=== PATIENT | female | born 1955 | race Caucasian/White ===

== ENCOUNTER → 2017-06-08 | Outpatient (CLI) | payer OTHER ==
--- NOTE | 2017-06-10 07:36 | MM ---
Reason for exam: screening (asymptomatic). Last mammogram was performed 3 years and 10 months ago. History: Patient is postmenopausal. Family history of breast cancer in aunt at age 60. Physical Findings: A clinical breast exam by your physician is recommended on an annual basis and results should be correlated with mammographic findings. MG Screening Mammo w CAD Bilateral CC and MLO view(s) were taken. Prior study comparison: July 25, 2013, bilateral digital screening mammo w/CAD. There are scattered fibroglandular densities. No significant changes when compared with prior studies. ASSESSMENT: Negative, BI-RAD 1 RECOMMENDATION: Routine screening mammogram of both breasts in 1 year.
== END | disposition home or self-care (01) ==
LOC: RADMAMWWP 16:15
PROVIDERS: ATTEND Internal Medicine
DX: Z12.31 Encounter for screening mammogram for malignant neoplasm of breast (principal)

== ENCOUNTER → 2017-12-30 | Outpatient (CLI) | payer OTHER ==
--- NOTE | 2017-12-30 13:25 | CT ---
EXAMINATION TYPE: CT lumbar spine wo con, CT thoracic spine wo con DATE OF EXAM: 12/30/2017 COMPARISON: 04/17/2016 HISTORY: Lumbago (accession [id number]), Thoracic pain (accession [id number]) CT DLP: 804.68 (accession [id number]), 977.2 (accession [id number]) mGycm Unenhanced CT of the thoracic and lumbar spine was performed. Bone and soft tissue window settings a re submitted as well as coronal and sagittal reconstructions. CT thoracic spine: There is moderate to severe multilevel degenerative disc space narrowing. Vacuum disc is noted at T6- 7 through T10-11. There is endplate sclerosis and ventral as well as a minimal dorsal spondylosis. I do not see evidence for disc herniation or protrusion. No evidence for central stenosis. No paraspina l mass or bony destructive process. No compression fracture evident. IMPRESSION: Stable multilevel degenerative disc space narrowing with spondylosis. Lumbar spine: L1-L2: Normal disc space height. No disc herniation protrusion or central stenosis. No facet joint arthropathy. No evidence for foraminal encroachment. L2-L3: Normal disc space height. No disc herniation protrusion or central stenosis. No facet joint arthropathy. No evidence for foraminal encroachment. L3-L4: Normal disc space height. Mild circumferential disc bulge. No evidence for herniation or protr usion. Mild bilateral foraminal encroachment left greater than right. No facet joint arthropathy. L4-L5: Vacuum disc changes identified. Moderate circumferential disc bulge. Effacement of the ventral thecal sac with right lateral recess stenosis. Mild bilateral foraminal encroachment right greater t guerin left. No central stenosis identified. L5-S1: Moderate degenerative disc space narrowing. Posterior disc bulge with encapsulating spur resul ting in posterior central hard disc. No evidence for central stenosis or lateral recess stenosis. No paraspinal masses are identified. Lumbar segments are free if fracture. IMPRESSION: 1. Multilevel degenerative disc disease greatest at L4-5 and L5-S1. Right lateral recess stenosis at L4-5. Foraminal encroachment as outlined above.
== END | disposition home or self-care (01) ==
LOC: RADCTMAIN 12:28
PROVIDERS: ATTEND Psychiatry & Neurology Neurology
DX: M48.04 Spinal stenosis, thoracic region (principal); M48.061 Spinal stenosis, lumbar region without neurogenic claudication; M47.814 Spondylosis without myelopathy or radiculopathy, thoracic region; M51.37 Other intervertebral disc degeneration, lumbosacral region; Z88.0 Allergy status to penicillin
CPT/HCPCS: 72128; 72131

== ENCOUNTER → 2018-03-11 | Outpatient (CLI) | payer OTHER ==
[~2018-03-11] MED LIST: SODIUM CHLORIDE 0.9% 500 ML in EMPTY BAG 1 BAG IV PRN
[2018-03-11 09:34] VITALS: BP 137/96; PULSE 83; RESP 16; TEMP 98.7
[2018-03-11 09:55] LABS: Basophils % (A) 1 %; Eosinophils # (A) 0.2 k/uL (0-0.7); Eosinophils % (A) 3 %; HCT 40.6 % (34.0-46.0); HGB 12.9 gm/dL (11.4-16.0); Lymphocytes # (A) 3.4 k/uL (1.0-4.8); Lymphocytes % (A) 43 %; MCH 30.7 pg (25.0-35.0); MCHC 31.7 g/dL (31.0-37.0); MCV 96.6 fL (80.0-100.0); Mean Platelet Volume 6.9; Monocytes # (A) 0.6 k/uL (0-1.0); Monocytes % (A) 7 %; Neutrophils # (A) 3.5 k/uL (1.3-7.7); Neutrophils % (A) 44 %; Platelet Count 238 k/uL (150-450); RDW 13.8 % (11.5-15.5); WBC 7.9 k/uL (3.8-10.6)
[2018-03-11 10:06] LABS: Albumin 3.8 g/dL (3.5-5.0); Calcium 9.2 mg/dL (8.4-10.2); Total Bilirubin 0.3 mg/dL (0.2-1.3); Total Protein 6.5 g/dL (6.3-8.2)
== END | disposition home or self-care (01) ==
LOC: PROCWHC3 09:01
PROVIDERS: ATTEND Internal Medicine
DX: E78.5 Hyperlipidemia, unspecified (principal); I10 Essential (primary) hypertension; R63.4 Abnormal weight loss; Z45.2 Encounter for adjustment and management of vascular access device
CPT/HCPCS: 80053; 84443; 85025; 36591; J1642

== ENCOUNTER → 2018-04-13 | Outpatient (CLI) | payer OTHER ==
--- NOTE | 2018-04-13 11:23 | US ---
EXAMINATION TYPE: US carotid duplex BILAT DATE OF EXAM: 04/13/2018 COMPARISON: 11/10/2013 CLINICAL HISTORY: R09.89 Carotid Bruit,. EXAM MEASUREMENTS: RIGHT: Peak Systolic Velocity (PSV) cm/sec ----- Right CCA: 83.8 ----- Right ICA: 112.9 ----- Right ECA: 82.7 ICA/CCA ratio: 1.3 RIGHT: End Diastole cm/sec ----- Right CCA: 25.7 ----- Right ICA: 45.1 ----- Right ECA: 20.2 LEFT: Peak Systolic Velocity (PSV) cm/sec ----- Left CCA: known occlusion- no flow detected ----- Left ICA: known occlusion- no flow detected ----- Left ECA: known occlusion- no flow detected ICA/CCA ratio: LEFT: End Diastole cm/sec ----- Left CCA: known occlusion- no flow detected ----- Left ICA: known occlusion- no flow detected ----- Left ECA: known occlusion- no flow detected VERTEBRALS (direction of flow): Right Vertebral: Antegrade Left Vertebral: Antegrade Rhythm: Normal IMPRESSION: 1. 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 2. No hemodynamically significant stenosis within the right visualized carotid arterial system. Mild amount of grayscale atheromatous plaquing.
== END ==
LOC: RADUSMAIN 10:02
PROVIDERS: ATTEND Internal Medicine Cardiovascular Disease
DX: I65.22 Occlusion and stenosis of left carotid artery (principal)
CPT/HCPCS: 93880

== ENCOUNTER 2018-05-20 09:30 | Emergency (ER) | payer OTHER ==
[2018-05-20] MEDS ORDERED: SODIUM CHLORIDE 0.9% 1,000 ML IV STA ×2 (10:16)
[2018-05-20] MEDS ORDERED: LABETALOL 5 MG/ML VIAL MDV IVP STA (10:17)
--- NOTE | 2018-05-20 10:21 | ED ---
Recheck HPI - General Chief Complaint: Recheck/Abnormal Lab/Rx Stated Complaint: Hypertension Time Seen by Provider: 05/20/18 09:52 Source: patient, RN notes reviewed, old records reviewed Mode of arrival: ambulatory Limitations: no limitations - History of Present Illness Initial Comments: 62-year-old female presented to the emergency department for evaluation due to hypertension. Patient was here out patiently for MediPort flushed this morning. Patient's blood pressure was elevated at 186/109 and then 191/111. Patient did have her port flushed but was told to come to the ER for further evaluation due to the elevated will pressure. She reports that she's had no chest pain or shortness of breath. She does report she's been having some headaches frequently. She's been taking Tylenol. Patient states that she has had no other symptoms associated with the blood pressure. Normal urine output. - Related Data Home Medications Medication Instructions Recorded Confirmed HYDROcodone/APAP 5-325MG [[place] 1 tab PO BID PRN 10/02/16 05/20/18 5-325] Metoprolol Tartrate [Lopressor] 25 mg PO BID 10/02/16 05/20/18 Divalproex ER [Depakote ER] 500 mg PO TID 03/11/18 05/20/18 Zolpidem [Ambien] 5 mg PO HS PRN 03/11/18 05/20/18 Escitalopram [Lexapro] 10 mg PO DAILY 05/20/18 05/20/18 Fenofibrate,Micronized 200 mg PO DAILY 05/20/18 05/20/18 [Fenofibrate] Prasugrel [Effient] 10 mg PO DAILY 05/20/18 05/20/18 Primidone [Mysoline] 50 mg PO HS 05/20/18 05/20/18 Simvastatin 40 mg PO HS 05/20/18 05/20/18 Allergies Allergy/AdvReac Type Severity Reaction Status Date / Time iodine Allergy Severe Facial Verified 05/20/18 09:58 Swelling Penicillins Allergy Severe facial Verified 05/20/18 09:58 swelling Review of Systems ROS Statement: Those systems with pertinent positive or pertinent negative responses have been documented in the HPI. ROS Other: All systems not noted in ROS Statement are negative. Past Medical History Past Medical History: Asthma, Blood Disorder, Chest Pain / Angina, COPD, CVA/TIA , Deep Vein Thrombosis (DVT), Hyperlipidemia, Hypertension, Liver Disease, Memory Impairment, Pneumonia, Seizure Disorder, Skin Disorder, Syncope, Vascular Disorder Additional Past Medical History / Comment(s): Last seizure March 2016, heart Murmur, DVT R leg 1998, TIA, PVOD, chronic back pain, DDD, hepatitis C, migraines, UTI, urine incontinence at times, eczema yrs ago, anemia, sinusitis, colon polyps, past fractures R foot little toe and L foot fx. History of Any Multi-Drug Resistant Organisms: MRSA Date of last positivie culture/infection: 2008 MDRO Source:: legs Past Surgical History: AICD, Heart Catheterization, Hysterectomy, Pacemaker Additional Past Surgical History / Comment(s): 2012 AICD/pacer, 2011 cardiac cath-no intervention, colonoscopy with polypectomy, tumor removed in throat, dasia filter 2006, angiograms, stent to bilateral legs, L jugular vein tumor removed, infusaport for blood draws r/t coumadin monitoring. Past Anesthesia/Blood Transfusion Reactions: No Reported Reaction Additional Past Anesthesia/Blood Transfusion Reaction / Comment(s): Pt states she received blood in the 1970's without reaction. Type of Cardiac Device: Permanent Pacemaker, AICD Device Placement Date:: 2012 Past Psychological History: Anxiety, Bipolar, Depression Smoking Status: Former smoker Past Alcohol Use History: None Reported Past Drug Use History: Heroin, Marijuana - Past Family History Father History Unknown: Yes Family Medical History: Cancer, CVA/TIA, Myocardial Infarction (MT) Additional Family Medical History / Comment(s): Father had colon cancer. He is 80 yrs old. General Exam - General Exam Comments Initial Comments: This is a 62-year-old female. Alert and oriented. No significant distress. Limitations: no limitations General appearance: alert, in no apparent distress Head exam: Present: atraumatic, normocephalic, normal inspection Eye exam: Present: normal appearance, PERRL, EOMI. Absent: scleral icterus, conjunctival injection, periorbital swelling ENT exam: Present: normal exam, mucous membranes moist Neck exam: Present: normal inspection. Absent: tenderness, meningismus, lymphadenopathy Respiratory exam: Present: normal lung sounds bilaterally. Absent: respiratory distress, wheezes, rales, rhonchi, stridor Cardiovascular Exam: Present: regular rate, normal rhythm, normal heart sounds. Absent: systolic murmur, diastolic murmur, rubs, gallop, clicks Extremities exam: Present: normal inspection, full ROM, normal capillary refill. Absent: tenderness, pedal edema, joint swelling, calf tenderness Back exam: Present: normal inspection Neurological exam: Present: alert, oriented X3, CN II-XII intact Expanded Patient oriented to: Present: person, place, time Speech: Present: fluid speech Cranial nerves: EOM's Intact: Normal Cerebellar function: Finger to Nose: Normal Upper motor neuron: Pronator Drift: Normal Sensory exam: Upper Extremity Light Touch: Normal, Lower Extremity Light Touch: Normal Motor strength exam: RUE: 5, LUE: 5, RLE: 5, LLE: 5 Eye Response: (4) open spontaneously Motor Response: (6) obeys commands Verbal Response: (5) oriented Geraldine Total: 15 Psychiatric exam: Present: normal affect, normal mood Skin exam: Present: warm, dry, intact, normal color. Absent: rash Course Vital Signs 05/20/18 05/20/18 05/20/18 09:35 10:40 12:01 Temperature 97.7 F Pulse Rate 73 69 66 Respiratory 20 20 18 Rate Blood Pressure 178/93 154/73 142/75 O2 Sat by Pulse 98 97 98 Oximetry 05/20/18 13:03 Temperature 98.5 F Pulse Rate 69 Respiratory 16 Rate Blood Pressure 138/94 O2 Sat by Pulse 96 Oximetry Medical Decision Making - Medical Decision Making 62-year-old female presents emergency Department chief complaint of episodes of hypertension. Patient does have a history of stents in her as well as pacemaker. Patient reports she's been taking her medication as prescribed. She was here earlier today to get her Mediport placed and they noticed her blood pressure is elevated. His complaint of a headache at this time. Patient was given IV fluids labwork obtained. All her lab work was reviewed and normal. EKG shows no acute changes. CT brain and C-spine were completed negative for any acute abdomen ice. She was given fluids Patient reports that her headache is diminished now 0 out of 10. She was eating a sandwich. She has no neurological focalizing findings. Patient informed of all these results. Her blood pressure did go down to 150/83. No labetalol was given. On discharge blood pressures 130/100. I discussed that she should check her blood pressure throughout the week. She does have at home blood pressure machine. She states that she feels well and the like to be discharged home. I agreed to follow-up with primary care physician. Patient is history plan will comply. Return parameters were discussed. - Lab Data Result diagrams: 05/20/18 10:55 05/20/18 10:55 Lab Results 05/20/18 05/20/18 05/20/18 Range/Units 10:55 10:55 10:55 WBC 6.0 (3.8-10.6) k/uL RBC 4.17 (3.80-5.40) m/uL Hgb 13.0 (11.4-16.0) gm/dL Hct 39.5 (34.0-46.0) % MCV 94.8 (80.0-100.0) fL MCH 31.1 (25.0-35.0) pg MCHC 32.7 (31.0-37.0) g/dL RDW 13.7 (11.5-15.5) % Plt Count 164 (150-450) k/uL Neutrophils % 52 % Lymphocytes % 39 % Monocytes % 6 % Eosinophils % 2 % Basophils % 1 % Neutrophils # 3.1 (1.3-7.7) k/uL Lymphocytes # 2.4 (1.0-4.8) k/uL Monocytes # 0.3 (0-1.0) k/uL Eosinophils # 0.1 (0-0.7) k/uL Basophils # 0.0 (0-0.2) k/uL PT (9.0-12.0) sec INR (<1.2) APTT (22.0-30.0) sec Sodium 140 (137-145) mmol/L Potassium 4.6 (3.5-5.1) mmol/L Chloride 107 (98-107) mmol/L Carbon Dioxide 25 (22-30) mmol/L Anion Gap 8 mmol/L BUN 24 H (7-17) mg/dL Creatinine 0.80 (0.52-1.04) mg/dL Est GFR (CKD-EPI)AfAm >90 (>60 ml/min/1.73 sqM) Est GFR (CKD-EPI)NonAf 80 (>60 ml/min/1.73 sqM) Glucose 94 (74-99) mg/dL Calcium 9.1 (8.4-10.2) mg/dL Magnesium 1.8 (1.6-2.3) mg/dL Total Bilirubin 0.3 (0.2-1.3) mg/dL AST 25 (14-36) U/L ALT 26 (9-52) U/L Alkaline Phosphatase 62 (38-126) U/L Total Creatine Kinase 48 (30-135) U/L CK-MB (CK-2) 0.8 (0.0-2.4) ng/mL CK-MB (CK-2) Rel Index 1.7 Troponin I <0.012 (0.000-0.034) ng/mL Total Protein 6.2 L (6.3-8.2) g/dL Albumin 3.6 (3.5-5.0) g/dL 05/20/18 Range/Units 10:55 WBC (3.8-10.6) k/uL RBC (3.80-5.40) m/uL Hgb (11.4-16.0) gm/dL Hct (34.0-46.0) % MCV (80.0-100.0) fL MCH (25.0-35.0) pg MCHC (31.0-37.0) g/dL RDW (11.5-15.5) % Plt Count (150-450) k/uL Neutrophils % % Lymphocytes % % Monocytes % % Eosinophils % % Basophils % % Neutrophils # (1.3-7.7) k/uL Lymphocytes # (1.0-4.8) k/uL Monocytes # (0-1.0) k/uL Eosinophils # (0-0.7) k/uL Basophils # (0-0.2) k/uL PT 11.6 (9.0-12.0) sec INR 1.2 H (<1.2) APTT 35.5 H (22.0-30.0) sec Sodium (137-145) mmol/L Potassium (3.5-5.1) mmol/L Chloride (98-107) mmol/L Carbon Dioxide (22-30) mmol/L Anion Gap mmol/L BUN (7-17) mg/dL Creatinine (0.52-1.04) mg/dL Est GFR (CKD-EPI)AfAm (>60 ml/min/1.73 sqM) Est GFR (CKD-EPI)NonAf (>60 ml/min/1.73 sqM) Glucose (74-99) mg/dL Calcium (8.4-10.2) mg/dL Magnesium (1.6-2.3) mg/dL Total Bilirubin (0.2-1.3) mg/dL AST (14-36) U/L ALT (9-52) U/L Alkaline Phosphatase (38-126) U/L Total Creatine Kinase (30-135) U/L CK-MB (CK-2) (0.0-2.4) ng/mL CK-MB (CK-2) Rel Index Troponin I (0.000-0.034) ng/mL Total Protein (6.3-8.2) g/dL Albumin (3.5-5.0) g/dL 05/20/18 10:59 EKG shows atrial paced rhythm. The jugular rate of 61 bpm period. Was 196 ms. QRS duration 70 ms. QT QTc is 418/420 ms. - Radiology Data Radiology results: report reviewed No acute process. Chronic changes similar to prior CT 2-16. His x-rays negative for any acute cardio primary process. No significant change from prior. Disposition Clinical Impression: Hypertension Disposition: HOME SELF-CARE Condition: Good Instructions: Hypertension (ED) Additional Instructions: Follow-up with primary care provider. Return to emergency department if any alarming signs or symptoms occur. Recheck blood pressure periodically throughout the week. Is patient prescribed a controlled substance at d/c from ED?: No When asked, does pt state using other controlled substances?: No If prescribed controlled substance>3 days was MAPS reviewed?: No If opioid is for acute pain is fill amount 7 days or less?: No If Rx opioid, was Start Talking consent form obtained?: No Referrals: Jayashree Torres MD [Primary Care Provider] - 1-2 days Time of Disposition: 12:57
--- NOTE | 2018-05-20 11:22 | CT ---
EXAMINATION TYPE: CT brain wo con DATE OF EXAM: 05/20/2018 COMPARISON: 02/09/2016 HISTORY: hypertension, LAROSE CT DLP: 1100 mGycm Automated exposure control for dose reduction was used. FINDINGS: There is redemonstration of punctate basal ganglia calcifications seen bilaterally. Prominence of the peripheral sulci and ventricular system compatible with age-related volume loss are seen on the prio r exam. There is no evidence of acute intracranial hemorrhage, midline shift or mass effect. No suspi cious extra axial fluid collection is seen. Note is made of a partially empty sella turcica. There ar e few foci of nonspecific white matter change within the subcortical and periventricular white matter as seen on the prior exam, unchanged. These are most commonly on the basis of chronic microangiopath y. Left parietal scalp vertex debris compatible with foreign bodies are unchanged from the prior. Dennis varium is intact and paranasal sinuses are well aerated as are the mastoid air cells. There is athero sclerosis of the intracranial vasculature noted. IMPRESSION: NO ACUTE INTRACRANIAL PROCESS. CHRONIC CHANGES ARE SIMILAR TO THE PRIOR 02/19/2016.
[2018-05-20 11:26] LABS: Basophils % (A) 1 %; Eosinophils # (A) 0.1 k/uL (0-0.7); Eosinophils % (A) 2 %; HCT 39.5 % (34.0-46.0); Lymphocytes # (A) 2.4 k/uL (1.0-4.8); Lymphocytes % (A) 39 %; MCH 31.1 pg (25.0-35.0); MCHC 32.7 g/dL (31.0-37.0); MCV 94.8 fL (80.0-100.0); Mean Platelet Volume 6.8; Monocytes # (A) 0.3 k/uL (0-1.0); Monocytes % (A) 6 %; Neutrophils # (A) 3.1 k/uL (1.3-7.7); Neutrophils % (A) 52 %; Platelet Count 164 k/uL (150-450); RBC 4.17 m/uL (3.80-5.40); RDW 13.7 % (11.5-15.5)
--- NOTE | 2018-05-20 11:36 | XR ---
EXAMINATION TYPE: XR chest 2V DATE OF EXAM: 05/20/2018 COMPARISON: Chest x-ray October 02, 2016 HISTORY: Chest pain. TECHNIQUE: Frontal and lateral views of the chest are obtained. FINDINGS: There is stable right internal jugular Mediport catheter. There is no focal air space opaci ty, pleural effusion, or pneumothorax seen. The cardiac silhouette size is within normal limits. Isaias l-lead pacemaker is redemonstrated. The osseous structures are intact. IMPRESSION: No acute cardiopulmonary process. No significant change from prior.
[2018-05-20 11:41] LABS: ALT 26 U/L (9-52); AST 25 U/L (14-36); Albumin 3.6 g/dL (3.5-5.0); Alkaline Phosphatase 62 U/L (38-126); Anion Gap 8 mmol/L; Blood Urea Nitrogen 24 mg/dL (7-17); Calcium 9.1 mg/dL (8.4-10.2); Carbon Dioxide 25 mmol/L (22-30); Chloride 107 mmol/L (98-107); Glucose 94 mg/dL (74-99); Magnesium 1.8 mg/dL (1.6-2.3); Potassium 4.6 mmol/L (3.5-5.1); Sodium 140 mmol/L (137-145); Total Bilirubin 0.3 mg/dL (0.2-1.3); Total Protein 6.2 g/dL (6.3-8.2)
[2018-05-20 11:52] LABS: Creatine Kinase 48 U/L (30-135)
[2018-05-20 12:04] LABS: Creatine Kinase MB 0.8 ng/mL (0.0-2.4); Troponin I <0.012 ng/mL (0.000-0.034)
[2018-05-20 12:10] LABS: INR 1.2 (<1.2); Partial Thromboplastin Time 35.5 sec (22.0-30.0); Prothrombin Time 11.6 sec (9.0-12.0)
[2018-05-20 13:04] VITALS: BP 138/94; PULSE 69; RESP 16; TEMP 98.5
== END 2018-05-20 13:25 | disposition home or self-care (01) ==
LOC: EC 09:30
DX: I10 Essential (primary) hypertension (principal); R51 Headache; E78.5 Hyperlipidemia, unspecified; G40.909 Epilepsy, unspecified, not intractable, without status epilepticus; F31.9 Bipolar disorder, unspecified; F41.9 Anxiety disorder, unspecified; Z87.891 Personal history of nicotine dependence; Z79.899 Other long term (current) drug therapy; Z88.0 Allergy status to penicillin; Z91.048 Other nonmedicinal substance allergy status; Z86.14 Personal history of Methicillin resistant Staphylococcus aureus infection; Z86.69 Personal history of other diseases of the nervous system and sense organs; Z86.79 Personal history of other diseases of the circulatory system; Z95.0 Presence of cardiac pacemaker; Z82.49 Family history of ischemic heart disease and other diseases of the circulatory system; Z53.8 Procedure and treatment not carried out for other reasons
CPT/HCPCS: 36415; 70450; 71046; 80053; 82550; 82553; 83735; 84484; 85025; 85610; 85730; 93005; 96360; 96361; 99284

== ENCOUNTER → 2018-05-20 | Outpatient (CLI) | payer OTHER ==
[2018-05-20 09:23] VITALS: PULSE 70; RESP 16; TEMP 97.7
[2018-05-20 09:25] VITALS: BP 191/111
[2018-05-20 09:59] LABS: Basophils # (A) 0.1 k/uL (0-0.2); Basophils % (A) 1 %; Eosinophils # (A) 0.2 k/uL (0-0.7); Eosinophils % (A) 2 %; HCT 42.4 % (34.0-46.0); HGB 13.6 gm/dL (11.4-16.0); Lymphocytes # (A) 3.3 k/uL (1.0-4.8); Lymphocytes % (A) 46 %; MCH 30.9 pg (25.0-35.0); MCV 96.4 fL (80.0-100.0); Mean Platelet Volume 6.6; Monocytes # (A) 0.5 k/uL (0-1.0); Monocytes % (A) 6 %; Neutrophils % (A) 43 %; Platelet Count 196 k/uL (150-450); RDW 13.8 % (11.5-15.5)
[2018-05-20 10:05] LABS: Calcium 9.2 mg/dL (8.4-10.2); Potassium 4.8 mmol/L (3.5-5.1); Total Bilirubin 0.4 mg/dL (0.2-1.3); Total Protein 6.7 g/dL (6.3-8.2)
== END | disposition home or self-care (01) ==
LOC: PROCWHC3 08:54
PROVIDERS: ATTEND Internal Medicine
DX: Z45.2 Encounter for adjustment and management of vascular access device (principal); E78.5 Hyperlipidemia, unspecified; R63.4 Abnormal weight loss
CPT/HCPCS: 80061; 80053; 84443; 85025; 36591; J1642

== ENCOUNTER → 2018-06-02 | Outpatient (CLI) | payer OTHER ==
--- NOTE | 2018-06-02 16:54 | US ---
EXAMINATION TYPE: US abdomen complete DATE OF EXAM: 06/02/2018 COMPARISON: CT 10/03/2016 CLINICAL HISTORY: ABDOMINAL PAIN. EXAM MEASUREMENTS: Liver Length: 13.3 cm Gallbladder Wall: 0.2 cm CBD: 0.3 cm Spleen: 7.4 cm Right Kidney: 9.7 x 4.3 x 4.4 cm Left Kidney: 9.9 x 4.4 x 4.3 cm Pancreas: Body/Tail obscured by overlying bowel gas Liver: wnl Gallbladder: wnl Evidence for sonographic Balderrama's sign: No CBD: wnl Spleen: Slightly heterogeneous echotexture Right Kidney: No hydronephrosis or masses seen Left Kidney: No hydronephrosis or masses seen Upper IVC: wnl Abd Aorta: Atherosclerosis IMPRESSION: 1. No acute ultrasound abnormality.
== END | disposition home or self-care (01) ==
LOC: RADUSWWP 08:46
PROVIDERS: ATTEND Internal Medicine
DX: R10.84 Generalized abdominal pain (principal)
CPT/HCPCS: 76700

== ENCOUNTER → 2018-12-09 | Outpatient (CLI) | payer OTHER ==
--- NOTE | 2018-12-09 15:59 | NM ---
EXAMINATION TYPE: NM DatScan Brain SPECT DATE OF EXAM: 12/09/2018 COMPARISON: 05/20/2018 CT brain HISTORY: Tremors, memory loss, abnormal gait TECHNIQUE: 10 drops of Lugol's solution was administered 1 hour prior to injection as a thyroid bloc hugo agent. After the administration of 4.45 mCi I-123 Ioflupane DaTscan. Images obtained 3 hours p ost injection. SPECT images of the brain were acquired with axial and coronal reconstructions. FINDINGS: There is an abnormal level of background activity with slightly weak, shape appearance of the caudate and putamen. The DaTSCAN demonstrates balanced striatal loss to the caudate and putamina nucleii in the striata. This appearance is consistent with the loss of the pre-synaptic dopaminergic terminals. IMPRESSION: Striatal appearance is consistent with the loss of the pre-synaptic dopaminergic terminals. Abnormal appearance is supportive of a clinical diagnosis of DLB, idiopathic PD, Parkinson?s dementia complex, or PS.
== END | disposition home or self-care (01) ==
LOC: RADNMMAIN 10:57
PROVIDERS: ATTEND Psychiatry & Neurology Neurology
DX: G25.0 Essential tremor (principal)
CPT/HCPCS: 78607; A9584; J1642

== ENCOUNTER → 2019-04-28 | Outpatient (CLI) | payer OTHER ==
--- NOTE | 2019-05-01 09:44 | MM ---
Reason for exam: screening (asymptomatic). Last mammogram was performed 1 year and 11 months ago. History: Patient is postmenopausal. Family history of breast cancer in aunt at age 60. Physical Findings: A clinical breast exam by your physician is recommended on an annual basis and results should be correlated with mammographic findings. MG Screening Mammo w CAD Bilateral CC and MLO view(s) were taken. Prior study comparison: June 08, 2017, bilateral MG screening mammo w CAD. July 25, 2013, bilateral digital screening mammo w/CAD. The breast tissue is heterogeneously dense. This may lower the sensitivity of mammography. Benign appearing bilateral calcifications. Left breast asymmetry at middle depth 6cm from nipple. ASSESSMENT: Incomplete: need additional imaging evaluation, BI-RAD 0 RECOMMENDATION: Special view mammogram of the left breast. Ultrasound of the right breast. (right palpable) [facility] will attempt to contact patient to return for supplemental views and ultrasound.
== END | disposition home or self-care (01) ==
LOC: RADMAMWWP 15:12
PROVIDERS: ATTEND Internal Medicine
DX: Z12.31 Encounter for screening mammogram for malignant neoplasm of breast (principal)
CPT/HCPCS: 77067

== ENCOUNTER → 2019-05-29 | Outpatient (CLI) | payer OTHER ==
--- NOTE | 2019-05-29 13:51 | US ---
EXAMINATION TYPE: US carotid duplex BILAT DATE OF EXAM: 05/29/2019 COMPARISON: US 2018 CLINICAL HISTORY: I73.9 Peripheral vascular disease, R09.89. Pt states known occlusion left side x ma ny years EXAM MEASUREMENTS: RIGHT: Peak Systolic Velocity (PSV) cm/sec ----- Right CCA: 67.7 ----- Right ICA: 121.1 ----- Right ECA: 96.5 ICA/CCA ratio: 1.8 RIGHT: End Diastole cm/sec ----- Right CCA: 21.5 ----- Right ICA: 46.1 ----- Right ECA: 39.6 LEFT: Peak Systolic Velocity (PSV) cm/sec Entire left carotid system occluded LEFT: End Diastole cm/sec Entire left carotid system occluded VERTEBRALS (direction of flow): Right Vertebral: Antegrade Left Vertebral: Antegrade Rhythm: Normal Entire left carotid system occluded, very difficult to visualize, vessels very small in caliber At the level of the carotid bifurcation is again noted mixed hypo-: Focus measuring 2.3 x 1.3 cm whic h may be related to atheroma but is indeterminate. IMPRESSION: Known occlusion of the internal carotid artery on the left. Irregular appearance of the carotid bifurcation as on prior exam, stable finding
== END | disposition home or self-care (01) ==
LOC: RADUSWWP 10:15
PROVIDERS: ATTEND Internal Medicine Cardiovascular Disease
DX: I65.22 Occlusion and stenosis of left carotid artery (principal); I25.10 Atherosclerotic heart disease of native coronary artery without angina pectoris
CPT/HCPCS: 93880

== ENCOUNTER → 2019-06-05 | Outpatient (CLI) | payer OTHER ==
--- NOTE | 2019-06-05 11:29 | MM ---
Reason for exam: additional evaluation requested from abnormal screening. Last mammogram was performed 1 month ago. History: Patient is postmenopausal. Family history of breast cancer in aunt at age 60. Physical Findings: Nurse did not find any significant physical abnormalities on exam. MG Work Up Mamm w CAD LT Spot compression CC, spot compression MLO, and ML view(s) were taken of the left breast. Prior study comparison: April 28, 2019, bilateral MG screening mammo w CAD. June 08, 2017, bilateral MG screening mammo w CAD. The breast tissue is extremely dense which could obscure a lesion on mammography. The previously seen abnormality resolves on additional views and appears as fibroglandular tissue compatible with summation. No suspicious abnormality. No ultrasound will be performed for right palpables as ordered as the patients skin lesion is not gone. These results were verbally communicated with the patient and result sheet given to the patient on 06/05/19. ASSESSMENT: Benign, BI-RAD 2 RECOMMENDATION: Return to routine screening mammogram schedule for both breasts.
== END | disposition home or self-care (01) ==
LOC: RADMAMWWP 10:14
PROVIDERS: ATTEND Internal Medicine
DX: R92.8 Other abnormal and inconclusive findings on diagnostic imaging of breast (principal)
CPT/HCPCS: 77065

== ENCOUNTER → 2019-11-25 | Outpatient (CLI) | payer OTHER ==
--- NOTE | 2019-11-26 12:52 | CT ---
EXAMINATION TYPE: CT sinus wo con DATE OF EXAM: 11/25/2019 COMPARISON: HISTORY: Sinus congestion and drainage. CT DLP: 667.3 mGycm. Automated Exposure Control for Dose Reduction was Utilized. TECHNIQUE: CT scan of the sinuses is performed without contrast, axial images are obtained, coronal r eformatted images are also reviewed. FINDINGS: The paranasal sinuses including the frontal, ethmoid, sphenoid, and maxillary sinuses bila terally are well-aerated without abnormal opacification. The ostiomeatal complex is patent bilateral ly on the coronal images. Mattie bullosa is present on the right. Visualized portion of mastoid air cells show no abnormal opacification. The globes are intact bilate rally. Mild cortical atrophy is likely age-related. Asymmetric soft tissue is increased on the right at the level of the jugular vein at the base of the skull, axial image #12, punctate focus of calcif ication is associated on axial image #6. IMPRESSION: The sinuses are clear and the ostiomeatal complex is patent bilaterally. Asymmetric soft tissue at the base of the skull as described. Contrast-enhanced CT through the neck suggested. A Yellow level critical message alert has been initiated for Jayashree Torres MD via the [employer] Critical Results System on 11/26/2019 12:49 PM. This message alert has been sent to Jayashree Torres MD via the preferences provided by the clinician for the receipt of Radiology Critical Findings. [employer] e ID [id number].
== END | disposition home or self-care (01) ==
LOC: RADCTMAIN 08:47
PROVIDERS: ATTEND Internal Medicine
DX: J30.9 Allergic rhinitis, unspecified (principal)
CPT/HCPCS: 70486

== ENCOUNTER → 2019-12-14 | Outpatient (CLI) | payer OTHER ==
--- NOTE | 2019-12-19 13:50 | CT ---
EXAMINATION TYPE: CT angio neck DATE OF EXAM: 12/14/2019 COMPARISON: None HISTORY: Neck swelling and lump CT DLP: 476.1 mGycm CONTRAST: CTA cervical carotids is performed and without and with IV Contrast, patient injected with 65 mL of I sovue 370. Contrast CTA of the cervical carotids was performed 3-D reconstruction imaging obtained at a separate workstation. Right carotid system: There is an enhancing mass noted at the right carotid bulb which partially enca ses the right carotid bulb and the right external carotid artery. This mass measures 1.7 x 1.8 x 2.4 cm. There is an additional mass noted more cranially which sits between the external carotid artery a nd right internal carotid artery which measures 2.7 x 1.7 x 1.1 cm. No additional right-sided masses are evident. There is mild atheromatous change of the right internal carotid artery with estimated di ameter reduction of 60%. Left carotid system: The left common carotid artery as well as the internal carotid artery are not vi sualized and are felt to be occluded. Several external carotid artery collaterals are noted. There is an enhancing mass at the C1 level measuring 2.1 x 1.2 x 1.5 cm. No additional left-sided masses are evident. There are enhancing masses within the mediastinum similar to the masses are noted about the carotids bilaterally. These lesions measure 1.2 cm 1.3 cm respectively. Ill-defined lesion left thyroid gland requires ultrasound correlation. IMPRESSION: 1. 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 Es timated 60% diameter reduction proximal right ICA. 2. Multiple enhancing masses noted about the bilateral carotids as discussed one of which encases the internal carotid artery partially and fully encases the right external carotid artery. There are sim ilar lesions within the mediastinum. Differential diagnostic possibilities include enhancing adenopat hy although glomus tumor is certainly within the differential. Correlate clinically. 3. Ultrasound of the thyroid gland is advised.
== END | disposition home or self-care (01) ==
LOC: RADCTMAIN 14:10
PROVIDERS: ATTEND Surgery Vascular Surgery
DX: I65.22 Occlusion and stenosis of left carotid artery (principal); R22.1 Localized swelling, mass and lump, neck
CPT/HCPCS: 70498; Q9967

== ENCOUNTER 2019-12-22 11:20 | Inpatient (IN) | payer OTHER ==
[2019-12-22 12:59] LABS: Basophils # (A) 0.1 k/uL (0-0.2); Basophils % (A) 1 %; Eosinophils # (A) 0.1 k/uL (0-0.7); Eosinophils % (A) 1 %; HCT 39.8 % (34.0-46.0); HGB 12.7 gm/dL (11.4-16.0); Hypochromasia Slight; Lymphocytes # (A) 3.7 k/uL (1.0-4.8); Lymphocytes % (A) 42 %; MCH 29.6 pg (25.0-35.0); MCHC 31.9 g/dL (31.0-37.0); MCV 92.7 fL (80.0-100.0); Mean Platelet Volume 6.8; Monocytes # (A) 0.6 k/uL (0-1.0); Monocytes % (A) 6 %; Neutrophils # (A) 4.2 k/uL (1.3-7.7); Neutrophils % (A) 47 %; Platelet Count 361 k/uL (150-450); RBC 4.29 m/uL (3.80-5.40); RDW 15.3 % (11.5-15.5); WBC 8.8 k/uL (3.8-10.6)
[2019-12-22 13:05] LABS: ALT 6 U/L (4-34); AST 21 U/L (14-36); African American GFR (CKD) >90 (>60 ml/min/1.73 sqM); Alkaline Phosphatase 79 U/L (38-126); Anion Gap 8 mmol/L; Blood Urea Nitrogen 18 mg/dL (7-17); Calcium 9.7 mg/dL (8.4-10.2); Carbon Dioxide 28 mmol/L (22-30); Chloride 100 mmol/L (98-107); Glucose 83 mg/dL (74-99); Non-African American GFR(CKD) 79 (>60 ml/min/1.73 sqM); Potassium 4.7 mmol/L (3.5-5.1); Sodium 136 mmol/L (137-145); Total Bilirubin 0.4 mg/dL (0.2-1.3); Total Protein 7.3 g/dL (6.3-8.2)
--- NOTE | 2019-12-22 14:22 | P.HPIM ---
History of Present Illness H&P Date: 12/22/19 Chief Complaint: Neck pain with masses noted around the bilateral carotids This is a 64-year-old female with a known past medical history of nicotine use, hypertension seizure, myocardial infarction, coronary artery disease with stents, pacemaker, right leg DVT several years ago treated with Coumadin, peripheral vascular disease and a remote history of IV drug use over 50 years ago. Patient also has a MediPort in which she gets blood draws for her seizure medication levels. Patient is a direct admit from Dr. Torres's office. She has been having neck pain bilaterally. Patient had been having issues with her MediPort and unable to get blood drawn's from it. She went to Dr. 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 Estimated 60% diameter reduction proximal right internal carotid artery. Multiple enhancing masses noted about the bilateral carotids one of which encases the internal carotid artery partially and fully encases the right external carotid artery. There are similar lesions within the mediastinum. Differential diagnostic possibilities include enhancing adenopathy although glomus tumor is certainly within the differential. Patient has been admitted to the hospital oncology has been placed on consult. Patient denies any prior history of cancer. She does admit to having some difficulty with swallowing. She denies any chest pain or shortness of breath. She denies any bowel movement changes or urinary symptoms. She denies any fevers chills or sweats. Review of Systems Please refer to HPI otherwise unremarkable Past Medical History Past Medical History: Asthma, Blood Disorder, Chest Pain / Angina, COPD, CVA/TIA, Deep Vein Thrombosis (DVT), Hyperlipidemia, Hypertension, Liver Disease, Memory Impairment, Pneumonia, Seizure Disorder, Skin Disorder, Syncope, Vascular Disorder Additional Past Medical History / Comment(s): Last seizure March 2016, heart Murmur, DVT R leg 1998, TIA, PVOD, chronic back pain, DDD, hepatitis B, migraines, urine incontinence at times, eczema yrs ago, anemia, sinusitis, colon polyps, past fractures R foot little toe and L foot fx. History of Any Multi-Drug Resistant Organisms: MRSA Date of last positivie culture/infection: 2008 MDRO Source:: legs Past Surgical History: AICD, Heart Catheterization With Stent, Hysterectomy, Pacemaker Additional Past Surgical History / Comment(s): 2012 AICD/pacer, 2011 cardiac cath-no intervention, colonoscopy with polypectomy, tumor removed in throat, dasia filter 2006, angiograms, stent to bilateral legs, L jugular vein tumor removed, infusaport for blood draws r/t coumadin monitoring. Past Anesthesia/Blood Transfusion Reactions: No Reported Reaction Additional Past Anesthesia/Blood Transfusion Reaction / Comment(s): Pt states she received blood in the 1970's without reaction. Date of Last Stent Placement:: na Type of Cardiac Device: Permanent Pacemaker, AICD Device Placement Date:: 2012 Past Psychological History: Anxiety, Bipolar, Depression Additional Psychological History / Comment(s): Pt resides with her spouse. She uses no device at this time. She drives. She states her depression is increased but she is not suicidal-no thoughts or plans or suicide. Smoking Status: Former smoker Past Alcohol Use History: None Reported Additional Past Alcohol Use History / Comment(s): Pt started smoking in 1975 and quit in 2014. 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 - Past Family History Father History Unknown: Yes Family Medical History: Cancer, CVA/TIA, Myocardial Infarction ([place]) Additional Family Medical History / Comment(s): Father had colon cancer. He is 80 yrs old. Medications and Allergies Home Medications Medication Instructions Recorded Confirmed Type Metoprolol Tartrate [Lopressor] 25 mg PO BID 10/02/16 12/22/19 History Primidone [Mysoline] 50 mg PO TID 05/20/18 12/22/19 History Aspirin EC [Ecotrin Low Dose] 81 mg PO DAILY 12/22/19 12/22/19 History Divalproex [Depakote] 500 mg PO TID 12/22/19 12/22/19 History Estradiol Cream [Estrace Cream 1 gm VAGINAL Q3D 12/22/19 12/22/19 History 0.01%] HYDROcodone/APAP 10-325MG [[place] 1 tab PO Q8H 12/22/19 12/22/19 History 10-325] Lactose-Reduced Food [Ensure Plus] 1 can PO BID 12/22/19 12/22/19 History Lisinopril [Zestril] 10 mg PO DAILY 12/22/19 12/22/19 History Multivitamins, Thera [Multivitamin 1 tab PO DAILY 12/22/19 12/22/19 History (formulary)] Omeprazole 20 mg PO BID 12/22/19 12/22/19 History Allergies Allergy/AdvReac Type Severity Reaction Status Date / Time iodine Allergy Severe Facial Verified 12/22/19 12:41 Swelling Penicillins Allergy Severe facial Verified 12/22/19 12:41 swelling Physical Exam Vitals: Vital Signs Temp Pulse Resp BP Pulse Ox 12/22/19 12:00 96.6 F L 75 16 154/76 99 Intake and Output 12/21/19 12/22/19 12/22/19 22:59 06:59 14:59 Other: Weight 49.895 kg Head normocephalic Neck supple. Tender with palpation the sides of the neck. I was unable to palpate any masses Lungs clear to auscultation bilaterally no wheezing or crackles Heart regular rate and rhythm S1-S2, no rub or gallop Abdomen is soft nontender nondistended positive bowel sounds no hepatosplenomegaly Extremities no edema Neuro alert and orientated to 3 Results CBC & Chem 7: 12/22/19 12:40 12/22/19 12:40 Labs: Abnormal Lab Results - Last 24 Hours (Table) 12/22/19 Range/Units 12:40 Sodium 136 L (137-145) mmol/L BUN 18 H (7-17) mg/dL Thrombosis Risk Factor Assmnt - Choose All That Apply Each Risk Factor Represents 2 Points: Age 61-74 years Thrombosis Risk Factor Assessment Total Risk Factor Score: 2 Thrombosis Risk Factor Assessment Level: Low Risk Assessment and Plan Assessment: 1. Neck pain with CAT scan showing multiple enhancing masses around the stacie ateral carotids of which only encases the internal carotid artery partially and Allen encases the right external carotid artery. There is are similar lesions within the mediastinum. Consult has been placed for oncology services. Continue the [place] for pain control. 2. 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 Prior history of smoking quit about 5 years ago 4. Seizure disorder continue with the Depakote 5. Essential Hypertension: Resume lisinopril and metoprolol 6. History of myocardial infarction and coronary artery disease with cardiac stents 7. History of peripheral vascular disease 8. History of COPD stable 9. History of right leg DVT status post treatment with Coumadin several years ago 10. Prior history of IV drug use over 50 years ago GI prophylaxis Protonix and DVT prophylaxis SCDs until evaluated by oncology to see if they are planning to do biopsy of neck masses inpatient. Also will hold aspirin at this time. Time with Patient: Greater than 30 (Greater than 50% of the total time spent in counseling and coordination of care.I performed an examination of the patient and discussed their management with the physician Tub Attendant. I have reviewed the Physician Tub Attendant's notes and agree with the documented findings and plan of care)
[2019-12-22] MEDS: DIVALPROEX 500 MG TABLET.DR PO SCH ×2 (14:43→21:57)
[2019-12-22] MEDS: HYDROcodone/APAP 10-325MG 1 EACH TAB PO PRN ×2 (14:43→21:57)
[2019-12-22] MEDS: PRIMIDONE 50 MG TAB PO SCH ×2 (14:43→21:58)
--- NOTE | 2019-12-22 16:38 | US ---
EXAMINATION TYPE: US thyroid st tissue head/neck DATE OF EXAM: 12/22/2019 COMPARISON: CT 2019, US 2019 CLINICAL HISTORY: thyroid lesion noted on CT neck. Known right neck mass seen on previous CT and US GLAND SIZE: Right Lobe: 6.1 x 1.3 x 1.6 cm Overall Parenchyma: homogenous Left Lobe: 5.0 x 1.2 x 1.4 cm Overall Parenchyma: homogeneous Isthmus Thickness: 0.2 cm NODULES RIGHT: # of nodules measured on right: 0 LEFT: # of nodules measured on left: 0 ISTHMUS: # of nodules measured in the isthmus: 0 Bilateral neck scanned, no evidence of lymphadenopathy. Enlarged gland with dilated vessel in left lobe. Right neck: 2.4 x 1.1 x 2.0cm solid vascular mass posterior to carotid artery, seen on previous exa m. IMPRESSION: 1. Solid mass adjacent to the carotid artery right neck. 2. MRI with contrast is available to complement the CT angiogram neck performed 12/14/2019 if this wou ld be of benefit.
[2019-12-22] MEDS: BARIUM SULFATE 450 ML ORAL.SUSP BOTTLE PO PRN ×2 (17:27→20:47)
[2019-12-22] MEDS ORDERED: FAMOTIDINE 20 MG/2 ML VIAL IV ONE (20:30)
[2019-12-22] MEDS ORDERED: diphenhydrAMINE 50 MG/ML 1 ML VIAL IVP ONE (20:30)
[2019-12-22] MEDS ORDERED: methylPREDNISolone SOD SUCCI 125 MG/2 ML VIAL IV ONE (20:30)
[2019-12-22] MEDS ORDERED: NON FORMULARY DRUG (Lactose-Reduced Food [Ensure Plus] 1 CAN) PO SCH (21:00)
[2019-12-22] MEDS: METOPROLOL TARTRATE 25 MG TAB PO SCH (21:58)
--- NOTE | 2019-12-22 22:10 | CT ---
EXAMINATION TYPE: CT ChestAbdPelvis w con DATE OF EXAM: 12/22/2019 COMPARISON: CT abdomen pelvis 10/03/2016 HISTORY: neck and mediastinal mass CT DLP: 454.8 mGycm Automated exposure control for dose reduction was used. CONTRAST: Performed with IV Contrast, patient injected with 100 mL of Isovue 300. There is a 2 x 2.5 cm pretracheal enlarged lymph node. Thoracic aorta is atheromatous. There is no an eurysm. The ascending aorta measures 3.5 cm. There is no dissection. There are no hilar masses. Heart size is normal. There is no pericardial effusion. Thyroid gland is symmetric. The stomach is intact. Spleen shows no focal defect. There is no evidence of pancreatic mass. Liver s hows no focal defect. The bile ducts are not dilated. Gallbladder is not definitely seen. There is no adrenal mass. There is inferior vena cava filter. Kidneys show satisfactory contrast opac ification. There is no hydronephrosis. There is one similar cortical cyst anterior right kidney. Abdo jennifer aorta is atheromatous. There is no retroperitoneal adenopathy. Ureters are not dilated. Bladder distends smoothly. There is no inguinal hernia. There is no free fluid in the pelvis. Lumbar vertebra have normal alignment. Thoracic vertebra have fairly normal alignment. There is degen erative disc space narrowing at L4-5 with spurring and vacuum disc. The bony pelvis appears intact. There is no mesenteric edema. There is no ascites or free air. There is no sign of a bowel obstructio n. There is hysterectomy. IMPRESSION: There is pretracheal enlarged lymph node or mass that is not changed compared to the CT scan of the t horacic spine of 12/30/2017 and suggestive of benign disease. Minimal scarring or subsegmental atelectasis at the lung bases. Atherosclerotic vascular disease.
[2019-12-23] MEDS: HYDROmorphone 0.5 MG/0.5 ML SYRINGE IVP PRN ×3 (02:42→19:17)
[2019-12-23] MEDS: PRIMIDONE 50 MG TAB PO SCH ×3 (08:21→21:00)
[2019-12-23] MEDS: HYDROcodone/APAP 10-325MG 1 EACH TAB PO PRN ×2 (08:21→16:20)
[2019-12-23] MEDS: PANTOPRAZOLE 40 MG TABLET PO SCH (08:21)
[2019-12-23] MEDS: MULTIVITAMINS, THERA 1 EACH TAB PO SCH (08:21)
[2019-12-23] MEDS: DIVALPROEX 500 MG TABLET.DR PO SCH ×3 (08:21→21:00)
[2019-12-23 08:31] LABS: Basophils % (A) 0 %; Eosinophils # (A) 0.1 k/uL (0-0.7); Eosinophils % (A) 1 %; HCT 41.5 % (34.0-46.0); HGB 12.9 gm/dL (11.4-16.0); Lymphocytes # (A) 2.4 k/uL (1.0-4.8); Lymphocytes % (A) 23 %; MCH 28.8 pg (25.0-35.0); MCHC 31.1 g/dL (31.0-37.0); MCV 92.7 fL (80.0-100.0); Mean Platelet Volume 6.8; Monocytes # (A) 0.4 k/uL (0-1.0); Monocytes % (A) 4 %; Neutrophils # (A) 7.3 k/uL (1.3-7.7); Neutrophils % (A) 71 %; Platelet Count 350 k/uL (150-450); RBC 4.47 m/uL (3.80-5.40); RDW 15.3 % (11.5-15.5); WBC 10.2 k/uL (3.8-10.6)
[2019-12-23 08:41] LABS: ALT 9 U/L (4-34); African American GFR (CKD) >90 (>60 ml/min/1.73 sqM); Albumin 3.8 g/dL (3.5-5.0); Anion Gap 8 mmol/L; Blood Urea Nitrogen 20 mg/dL (7-17); Calcium 9.6 mg/dL (8.4-10.2); Carbon Dioxide 27 mmol/L (22-30); Chloride 101 mmol/L (98-107); Glucose 114 mg/dL (74-99); Non-African American GFR(CKD) >90 (>60 ml/min/1.73 sqM); Sodium 136 mmol/L (137-145); Total Bilirubin 0.5 mg/dL (0.2-1.3); Total Protein 7.1 g/dL (6.3-8.2)
[2019-12-23 08:44] LABS: AST 27 U/L (14-36); Alkaline Phosphatase 65 U/L (38-126); Potassium 5.3 mmol/L (3.5-5.1)
[2019-12-23 08:59] LABS: T4, Free (Free Thyroxine) 1.03 ng/dL (0.78-2.19)
[2019-12-23] MEDS: LISINOPRIL 10 MG TAB PO SCH (09:08)
[2019-12-23] MEDS: METOPROLOL TARTRATE 25 MG TAB PO SCH ×2 (09:08→21:00)
[2019-12-23 12:30] VITALS: BMI 17.7
--- NOTE | 2019-12-23 13:39 | P.CONS ---
History of Present Illness - Reason for Consult Consult date: 12/22/19 Bilateral neck masses - History of Present Illness The patient is a 64-year-old white female with a very complicated past medical history. This includes a history of labile hypertension, seizures, brain bleed, DVT, multiple hospitalizations, coronary artery disease status post stents as well as peripheral vascular disease. The patient has been complaining of bilateral neck pain for some months with progression. She had an outpatient CTA of the neck which showed 2 masses in the right upper neck, one between the right external and right internal carotid measuring 2.7 cm, while the other partially encase the right carotid bulb and right external carotid measuring 2.4 cm. There was a smaller mass on the left side at C1,. Ill-defined mass in the thyroid as well as in the mediastinum were also noted on the scan. The patient had been complaining of decreased appetite, weight loss and generalized weakness. She was admitted for further management. 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 This was done at [facility] which has since closed. He denies any personal history of malignancy. No history of any thyroid problems or calcium related issues. However she does have a history of labile hypertension for many years requiring hospital admissions. She states that blood pressure has been more stable over the last few months. Review of Systems Constitutional: Reports fatigue, Reports weight loss Eyes: denies blurred vision, denies pain Ears: deny: decreased hearing, ear discharge, earache, tinnitus Ears, nose, mouth and throat: Denies headache, Denies sore throat Cardiovascular: Reports as per HPI, Denies chest pain, Denies shortness of breath Respiratory: Denies cough Gastrointestinal: Denies abdominal pain, Denies diarrhea, Denies nausea, Denies vomiting Genitourinary: Denies dysuria, Denies hematuria Menstruation: Reports postmenopausal Musculoskeletal: Reports neck pain, Denies myalgias Integumentary: Denies pruritus, Denies rash Neurological: Reports weakness Psychiatric: Reports anxiety Endocrine: Reports fatigue, Reports weight change Hematologic/Lymphatic: Reports as per HPI Past Medical History Past Medical History: Asthma, Blood Disorder, Chest Pain / Angina, COPD, CVA/TIA, Deep Vein Thrombosis (DVT), Hyperlipidemia, Hypertension, Liver Disease, Memory Impairment, Pneumonia, Seizure Disorder, Skin Disorder, Syncope, Vascular Disorder Additional Past Medical History / Comment(s): Last seizure March 2016, heart Murmur, DVT R leg 1998, TIA, PVOD, chronic back pain, DDD, hepatitis B, migraines, urine incontinence at times, eczema yrs ago, anemia, sinusitis, colon polyps, past fractures R foot little toe and L foot fx. History of Any Multi-Drug Resistant Organisms: MRSA Year Discovered:: 2008 MDRO Source:: legs Past Surgical History: AICD, Heart Catheterization With Stent, Hysterectomy, Pacemaker Additional Past Surgical History / Comment(s): 2012 AICD/pacer, 2011 cardiac cath-no intervention, colonoscopy with polypectomy, tumor removed in throat, dasia filter 2006, angiograms, stent to bilateral legs, L jugular vein tumor removed, infusaport for blood draws r/t coumadin monitoring. Past Anesthesia/Blood Transfusion Reactions: No Reported Reaction Additional Past Anesthesia/Blood Transfusion Reaction / Comm: Pt states she received blood in the 1969's without reaction. Date of Last Stent Placement:: na Type of Cardiac Device: Permanent Pacemaker, AICD Device Placement Date:: 2012 Past Psychological History: Anxiety, Bipolar, Depression Additional Psychological History / Comment(s): Pt resides with her spouse. She uses no device at this time. She drives. She states her depression is increased but she is not suicidal-no thoughts or plans or suicide. Smoking Status: Former smoker Past Alcohol Use History: None Reported Additional Past Alcohol Use History / Comment(s): Pt started smoking in 1975 and quit in 2014. 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 - Past Family History Father History Unknown: Yes Family Medical History: Cancer, CVA/TIA, Myocardial Infarction ([place]) Additional Family Medical History / Comment(s): Father had colon cancer. He is 80 yrs old. Medications and Allergies Home Medications Medication Instructions Recorded Confirmed Type Metoprolol Tartrate [Lopressor] 25 mg PO BID 10/02/16 12/22/19 History Primidone [Mysoline] 50 mg PO TID 05/20/18 12/22/19 History Aspirin EC [Ecotrin Low Dose] 81 mg PO DAILY 12/22/19 12/22/19 History Divalproex [Depakote] 500 mg PO TID 12/22/19 12/22/19 History Estradiol Cream [Estrace Cream 1 gm VAGINAL Q3D 12/22/19 12/22/19 History 0.01%] HYDROcodone/APAP 10-325MG [[place] 1 tab PO Q8H 12/22/19 12/22/19 History 10-325] Lactose-Reduced Food [Ensure Plus] 1 can PO BID 12/22/19 12/22/19 History Lisinopril [Zestril] 10 mg PO DAILY 12/22/19 12/22/19 History Multivitamins, Thera [Multivitamin 1 tab PO DAILY 12/22/19 12/22/19 History (formulary)] Omeprazole 20 mg PO BID 12/22/19 12/22/19 History Allergies Allergy/AdvReac Type Severity Reaction Status Date / Time iodine Allergy Severe Facial Verified 12/22/19 12:41 Swelling Penicillins Allergy Severe facial Verified 12/22/19 12:41 swelling Physical Exam Vitals: Vital Signs Temp Pulse Resp BP Pulse Ox 12/22/19 15:00 98.6 F 71 16 103/65 97 12/22/19 12:00 96.6 F L 75 16 154/76 99 Intake and Output 12/22/19 12/22/19 12/22/19 06:59 14:59 22:59 Other: # Voids 1 Weight 49.895 kg - Constitutional General appearance: no acute distress - EENT Eyes: EOMI, PERRLA ENT: hearing grossly normal, normal oropharynx - Neck 1. 5 - 2 cm mass rt upper neck , submand area. 1.5 cmupper neck Thyroid: bilateral: normal size - Respiratory Respiratory: bilateral: CTA - Cardiovascular Rhythm: regular Heart sounds: normal: S1, S2 - Gastrointestinal General gastrointestinal: normal bowel sounds, soft - Integumentary Integumentary: normal - Neurologic Neurologic: CNII-XII intact - Musculoskeletal Musculoskeletal: generalized weakness Results CBC & Chem 7: 12/23/19 08:17 12/23/19 08:17 Labs: Abnormal Lab Results - Last 24 Hours (Table) 12/22/19 Range/Units 12:40 Sodium 136 L (137-145) mmol/L BUN 18 H (7-17) mg/dL Comments: NM SPECT scan/ CTA neck/ US Neck/ CT L and T spine - reports reviewed Chest x-ray: report reviewed CT Scan - head: report reviewed Assessment and Plan (1) Neck mass Narrative/Plan: The consult has been placed for the finding of bilateral leg masses in this patient. The masses are intimately associated with the carotid artery on both sides. 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 Given the fact that the patient has a history of labile hypertension, functional catecholamine secretion by these tumors (true pheochromocytomas) is also possibility. This was discussed with the patient and her family. She was advised that these tumors are typically benign. At this time however other etiologies are not ruled out Given the primary differential at this time, as well as difficulty in actually biopsying these tumors because of location (as well as increased risk of b iopsying pheochromocytomas due to risk of markedly labile blood pressure) I will initiate workup by checking CT of the chest abdomen and pelvis to see if there are better target for biopsy. I will also order catecholamine levels. Further recommendations will be made based on the results. If the above workup was not conclusive, then another option would be to order the nuclear medicine scanning for pheochrome as adenoma as an outpatient. Current Visit: Yes Status: Acute Code(s): R22.1 - LOCALIZED SWELLING, MASS AND LUMP, NECK SNOMED Code(s): 337658172 (2) Neck pain Narrative/Plan: The patient is complaining of increasing neck pain. Given the location of the neck masses, and probable chronicity of the same, it is more likely that the neck pain is unrelated. Deferred to the admitting service for further management Current Visit: Yes Status: Acute Code(s): M54.2 - CERVICALGIA SNOMED Code(s): 83019494 Plan: deferred to the admitting service for management of her multiple other medical problems
--- NOTE | 2019-12-23 17:59 | P.PN ---
Subjective Progress Note Date: 12/23/19 This is a 64-year-old female with a known past medical history of nicotine use, hypertension seizure, myocardial infarction, coronary artery disease with stents, pacemaker, right leg DVT several years ago treated with Coumadin, peripheral vascular disease and a remote history of IV drug use over 50 years ago. Patient also has a MediPort in which she gets blood draws for her seizure medication levels. Patient is a direct admit from Dr. Torres's office. She has been having neck pain bilaterally. Patient had been having issues with her MediPort and unable to get blood drawn's from it. She went to Dr. 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 Estimated 60% diameter reduction proximal right internal carotid artery. Multiple enhancing masses noted about the bilateral carotids one of which encases the internal carotid artery part ially and fully encases the right external carotid artery. There are similar lesions within the mediastinum. Differential diagnostic possibilities include enhancing adenopathy although glomus tumor is certainly within the differential. Patient has been admitted to the hospital oncology has been placed on consult. Patient denies any prior history of cancer. She does admit to having some difficulty with swallowing. She denies any chest pain or shortness of breath. She denies any bowel movement changes or urinary symptoms. She denies any fevers chills or sweats. Objective - Vital Signs Vital signs: Vital Signs Temp 97.0 F L 12/23/19 14:32 Pulse 63 12/23/19 14:32 Resp 18 12/23/19 14:32 BP 101/67 12/23/19 14:32 Pulse Ox 95 12/23/19 14:32 Intake & Output 12/22/19 12/23/19 12/23/19 18:59 06:59 18:59 Intake Total 700 Balance 700 Weight 49.895 kg 49.895 kg Intake: Oral 700 Other: # Voids 1 1 3 # Bowel Movements 1 - Exam In general patient is alert and oriented 3 in no apparent distress HEENT head normocephalic and atraumatic Neck is tender no palpable masses Chest exam reveals a few scattered rhonchi no wheezing Cardiac exam reveals regular heart sounds, no gallop, no murmur Abdomen is soft nontender no organomegaly was normal bowel sounds Extremity exam reveals no edema no cyanosis or clubbing - Labs CBC & Chem 7: 12/23/19 08:17 12/23/19 08:17 Labs: Abnormal Lab Results - Last 24 Hours (Table) 12/23/19 Range/Units 08:17 Sodium 136 L (137-145) mmol/L Potassium 5.3 H (3.5-5.1) mmol/L BUN 20 H (7-17) mg/dL Glucose 114 H (74-99) mg/dL Assessment and Plan Plan: 1. Neck pain with CAT scan showing multiple enhancing masses around the bilateral carotids of which only encases the internal carotid artery partially and Allen encases the right external carotid artery. There is are similar lesions within the mediastinum. Consult has been placed for oncology services. Continue the [place] for pain control. 2. 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 Prior history of smoking quit about 5 years ago 4. Seizure disorder continue with the Depakote 5. Essential Hypertension: Resume lisinopril and metoprolol 6. History of myocardial infarction and coronary artery disease with cardiac stents 7. History of peripheral vascular disease 8. History of COPD stable 9. History of right leg DVT status post treatment with Coumadin several years ago 10. Prior history of IV drug use over 50 years ago GI prophylaxis Protonix and DVT prophylaxis SCDs until evaluated by oncology to see if they are planning to do biopsy of neck masses inpatient. Also will hold aspirin at this time.
[2019-12-23] MEDS: BACLOFEN 10 MG TAB PO SCH (21:00)
[2019-12-24] MEDS: HYDROcodone/APAP 10-325MG 1 EACH TAB PO PRN ×3 (00:31→20:26)
[2019-12-24] MEDS: HYDROmorphone 0.5 MG/0.5 ML SYRINGE IVP PRN ×3 (02:29→16:03)
[2019-12-24 07:50] LABS: Basophils # (A) 0.1 k/uL (0-0.2); Basophils % (A) 1 %; Eosinophils # (A) 0.2 k/uL (0-0.7); Eosinophils % (A) 2 %; HCT 37.4 % (34.0-46.0); Lymphocytes # (A) 4.2 k/uL (1.0-4.8); Lymphocytes % (A) 41 %; MCH 29.5 pg (25.0-35.0); Mean Platelet Volume 6.8; Monocytes # (A) 0.6 k/uL (0-1.0); Monocytes % (A) 6 %; Neutrophils # (A) 4.9 k/uL (1.3-7.7); Neutrophils % (A) 49 %; Platelet Count 291 k/uL (150-450); RBC 4.07 m/uL (3.80-5.40); RDW 15.5 % (11.5-15.5); WBC 10.2 k/uL (3.8-10.6)
[2019-12-24 08:00] LABS: ALT <6 U/L (4-34); AST 22 U/L (14-36); African American GFR (CKD) >90 (>60 ml/min/1.73 sqM); Albumin 3.4 g/dL (3.5-5.0); Alkaline Phosphatase 63 U/L (38-126); Anion Gap 4 mmol/L; Blood Urea Nitrogen 20 mg/dL (7-17); Calcium 9.3 mg/dL (8.4-10.2); Carbon Dioxide 29 mmol/L (22-30); Chloride 103 mmol/L (98-107); Glucose 90 mg/dL (74-99); Non-African American GFR(CKD) >90 (>60 ml/min/1.73 sqM); Sodium 136 mmol/L (137-145); Total Bilirubin 0.3 mg/dL (0.2-1.3); Total Protein 6.4 g/dL (6.3-8.2)
[2019-12-24] MEDS: MULTIVITAMINS, THERA 1 EACH TAB PO SCH (08:08)
[2019-12-24] MEDS: BACLOFEN 10 MG TAB PO SCH ×2 (08:08→20:17)
[2019-12-24] MEDS: METOPROLOL TARTRATE 25 MG TAB PO SCH ×2 (08:08→20:17)
[2019-12-24] MEDS: DIVALPROEX 500 MG TABLET.DR PO SCH ×3 (08:09→20:17)
[2019-12-24] MEDS: LISINOPRIL 10 MG TAB PO SCH (08:09)
[2019-12-24] MEDS: PANTOPRAZOLE 40 MG TABLET PO SCH ×2 (08:09→20:17)
[2019-12-24] MEDS: PRIMIDONE 50 MG TAB PO SCH ×3 (08:09→20:17)
--- NOTE | 2019-12-24 10:32 | P.PN ---
Subjective Progress Note Date: 12/24/19 This is a 64-year-old female with a known past medical history of nicotine use, hypertension seizure, myocardial infarction, coronary artery disease with stents, pacemaker, right leg DVT several years ago treated with Coumadin, peripheral vascular disease and a remote history of IV drug use over 50 years ago. Patient also has a MediPort in which she gets blood draws for her seizure medication levels. Patient is a direct admit from Dr. Torres's office. She has been having neck pain bilaterally. Patient had been having issues with her MediPort and unable to get blood drawn's from it. She went to Dr. 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 Estimated 60% diameter reduction proximal right internal carotid artery. Multiple enhancing masses noted about the bilateral carotids one of which encases the internal carotid artery part ially and fully encases the right external carotid artery. There are similar lesions within the mediastinum. Differential diagnostic possibilities include enhancing adenopathy although glomus tumor is certainly within the differential. Patient has been admitted to the hospital oncology has been placed on consult. Patient denies any prior history of cancer. She does admit to having some difficulty with swallowing. She denies any chest pain or shortness of breath. She denies any bowel movement changes or urinary symptoms. She denies any fevers chills or sweats. On 12/24/2019 patient was seen and examined on the medical floor she is alert and oriented 3 in no apparent distress she is still complaining of neck pain otherwise she denies any complaints there is no fever or chills no headache or dizziness no chest pain no shortness of breath no cough no nausea or vomiting no abdominal pain no diarrhea no burning with urination no frequency or urgency no hematuria, patient had slurred speech which has been worsening at this time will obtain brain MRI and consult neurology. Objective - Vital Signs Vital signs: Vital Signs Temp 97.7 F 12/24/19 06:27 Pulse 69 12/24/19 06:27 Resp 18 12/24/19 06:27 BP 131/78 12/24/19 06:27 Pulse Ox 95 12/24/19 06:27 Intake & Output 12/23/19 12/24/19 12/24/19 18:59 06:59 18:59 Intake Total 700 920 Output Total 4 Balance 700 916 Weight 49.895 kg Intake: Oral 700 920 Output: Urine 4 Other: # Voids 3 3 # Bowel Movements 1 - Exam In general patient is alert and oriented 3 in no apparent distress HEENT head normocephalic and atraumatic Neck is tender no palpable masses Chest exam reveals a few scattered rhonchi no wheezing Cardiac exam reveals regular heart sounds, no gallop, no murmur Abdomen is soft nontender no organomegaly was normal bowel sounds Extremity exam reveals no edema no cyanosis or clubbing - Labs CBC & Chem 7: 12/24/19 07:21 12/24/19 07:21 Labs: Abnormal Lab Results - Last 24 Hours (Table) 12/23/19 12/23/19 Range/Units 08:17 08:17 Sodium 136 L (137-145) mmol/L Potassium 5.3 H (3.5-5.1) mmol/L BUN 20 H (7-17) mg/dL Glucose 114 H (74-99) mg/dL PTH Intact 92.0 H (14.0-72.0) pg/mL Assessment and Plan Plan: 1. Neck pain with CAT scan showing multiple enhancing masses around the bilate ral carotids of which only encases the internal carotid artery partially and Allen encases the right external carotid artery. There is are similar lesions within the mediastinum. Consult has been placed for oncology services. Continue the [place] for pain control. 2. 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 Prior history of smoking quit about 5 years ago 4. Seizure disorder continue with the Depakote 5. Essential Hypertension: Resume lisinopril and metoprolol 6. History of myocardial infarction and coronary artery disease with cardiac stents 7. History of peripheral vascular disease 8. History of COPD stable 9. History of right leg DVT status post treatment with Coumadin several years ago 10. Prior history of IV drug use over 50 years ago GI prophylaxis Protonix and DVT prophylaxis SCDs until evaluated by oncology to see if they are planning to do biopsy of neck masses inpatient. Also will hold aspirin at this time. Will continue to monitor, check brain MRI with contrast, consult neurology regarding slurred speech
--- NOTE | 2019-12-24 16:24 | P.CNNES ---
History of Present Illness History of Present Illness: The patient is a 64-year-old female with a very complicated past medical history. She is seen in neurologic consultation on December 24, 2019, via teleneurology.This history includes labile hypertension, seizures, brain bleed, DVT, multiple hospitalizations, coronary artery disease status post stents as well as peripheral vascular disease. The patient has been complaining of bilateral neck pain for some months with progression. She had an outpatient CTA of the neck which showed 2 masses in the right upper neck, one between the right external and right internal carotid measuring 2.7 cm, while the other partially encase the right carotid bulb and right external carotid measuring 2.4 cm. There was a smaller mass on the left side at C1,. Ill-defined mass in the thyroid as well as in the mediastinum were also noted on the scan. Neurology is asked to see the patient for slurred speech. The patient does not feel that she is having any difficulty with her speech. The patient's RN and her knot picker cloth (was present in the room) do not feel that the patient has any difficulty with her speech. The knot picker cloth does note that the patient has always had some difficulty with pronouncing esses. The patient does state that she was unable to swallow her lunch this afternoon. She ordered chicken fingers and cayman islander fries. She also endorses paresthesias of her extremities. She feels as if she is more shaky than usual. She reports a mild headache. The patient had been complaining of decreased appetite, weight loss and generalized weakness. She was admitted for further management. 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 This was done at [facility] which has since closed. He denies any personal history of malignancy. No history of any thyroid problems or calcium related issues. However she does have a history of labile hypertension for many years requiring hospital admissions. Review of Systems See history of present illness Past Medical History Past Medical History: Asthma, Blood Disorder, Chest Pain / Angina, COPD, CVA/TIA, Deep Vein Thrombosis (DVT), Hyperlipidemia, Hypertension, Liver Disease, Memory Impairment, Pneumonia, Seizure Disorder, Skin Disorder, Syncope, Vascular Disorder Additional Past Medical History / Comment(s): Last seizure March 2016, heart Murmur, DVT R leg 1998, TIA, PVOD, chronic back pain, DDD, hepatitis B, migraines, urine incontinence at times, eczema yrs ago, anemia, sinusitis, colon polyps, past fractures R foot little toe and L foot fx. History of Any Multi-Drug Resistant Organisms: MRSA Date of last positivie culture/infection: 2008 MDRO Source:: legs Past Surgical History: AICD, Heart Catheterization With Stent, Hysterectomy, Pacemaker Additional Past Surgical History / Comment(s): 2012 AICD/pacer, 2011 cardiac cath-no intervention, colonoscopy with polypectomy, tumor removed in throat, dasia filter 2006, angiograms, stent to bilateral legs, L jugular vein tumor removed, infusaport for blood draws r/t coumadin monitoring. Past Anesthesia/Blood Transfusion Reactions: No Reported Reaction Additional Past Anesthesia/Blood Transfusion Reaction / Comment(s): Pt states she received blood in the s without reaction. Date of Last Stent Placement:: na Type of Cardiac Device: Permanent Pacemaker, AICD Device Placement Date:: 2012 Past Psychological History: Anxiety, Bipolar, Depression Additional Psychological History / Comment(s): Pt resides with her spouse. She uses no device at this time. She drives. She states her depression is increased but she is not suicidal-no thoughts or plans or suicide. Smoking Status: Former smoker Past Alcohol Use History: None Reported Additional Past Alcohol Use History / Comment(s): Pt started smoking in 1975 and quit in 2014. 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 - Past Family History Father History Unknown: Yes Family Medical History: Cancer, CVA/TIA, Myocardial Infarction ([place]) Additional Family Medical History / Comment(s): Father had colon cancer. He is 80 yrs old. Medications and Allergies Home Medications Medication Instructions Recorded Confirmed Type Metoprolol Tartrate [Lopressor] 25 mg PO BID 10/02/16 12/22/19 History Primidone [Mysoline] 50 mg PO TID 05/20/18 12/22/19 History Aspirin EC [Ecotrin Low Dose] 81 mg PO DAILY 12/22/19 12/22/19 History Divalproex [Depakote] 500 mg PO TID 12/22/19 12/22/19 History Estradiol Cream [Estrace Cream 1 gm VAGINAL Q3D 12/22/19 12/22/19 History 0.01%] HYDROcodone/APAP 10-325MG [[place] 1 tab PO Q8H 12/22/19 12/22/19 History 10-325] Lactose-Reduced Food [Ensure Plus] 1 can PO BID 12/22/19 12/22/19 History Lisinopril [Zestril] 10 mg PO DAILY 12/22/19 12/22/19 History Multivitamins, Thera [Multivitamin 1 tab PO DAILY 12/22/19 12/22/19 History (formulary)] Omeprazole 20 mg PO BID 12/22/19 12/22/19 History Allergies Allergy/AdvReac Type Severity Reaction Status Date / Time iodine Allergy Severe Facial Verified 12/22/19 12:41 Swelling Penicillins Allergy Severe facial Verified 12/22/19 12:41 swelling Physical Examination - Vital Signs Vital Signs: Vital Signs Temp Pulse Resp BP BP Pulse Ox 12/24/19 16:07 98.0 F 66 137/87 100 12/24/19 06:27 97.7 F 69 18 131/78 95 12/23/19 22:09 98.0 F 68 14 87/58 94 L Intake and Output 12/24/19 12/24/19 12/24/19 06:59 14:59 22:59 Intake Total 580 Output Total 4 Balance 576 Intake: Oral 580 Output: Urine 4 Other: # Voids 3 3 # Bowel Movements 1 Gen.: The patient is seated in the bed. She is thin. She is in mild distress. HEENT: Head is atraumatic, normocephalic. Fundus not visualized. There is no scleral icterus. Mucas membranes are moist. Neck: Not assessed Heart: Regular rate and rhythm Extremities: Without edema Neurological examination Mental status: The patient is awake, alert and oriented 3. Her speech is clear. At the patient accurately repeats phrases. There is a slight lisp when pronouncing esses, occasionally. Cranial nerves: Pupils are equal, round and reactive to light. Visual [place] are full to confrontation. Extraocular muscles are intact. There is no nystagmus. Facial sensation is intact. There is no facial asymmetry. Hearing is grossly intact. Uvula and palate are midline. Shoulder shrug is symmetric. Tongue protrudes midline. Motor: Strength is 4-5/5 throughout. Sensation: Grossly intact to light touch Coordination: Finger to nose testing and rapid alternating movements are intact. There is an intention tremor present with finger to nose testing. Tase-gt-[id number] testing is intact. Deep tendon reflexes: 1+/4+ in the bilateral upper extremities. 2+/4+ in the lower extremities. Gait: Not assessed Results - Laboratory Findings CBC and BMP: 12/24/19 07:21 12/24/19 07:21 Abnormal Lab Findings: Abnormal Labs 12/22/19 12/23/19 12/23/19 12:40 08:17 08:17 Sodium 136 L 136 L Potassium 5.3 H BUN 18 H 20 H Glucose 114 H Albumin PTH Intact 92.0 H 12/24/19 07:21 Sodium 136 L Potassium BUN 20 H Glucose Albumin 3.4 L PTH Intact Assessment and Plan Assessment: Impressions 1. The patient has an essentially normal neurological examination with the exception of tremor of the bilateral upper extremities. This tremor has been present and is being treated 2. Multiple neck masses 3. History of seizure disorder 4. History of cerebral hemorrhage Plan: Recommendations: 1. Speech therapy consultation regarding dysphagia 2. Thank you for allowing me to participate in the care of this patient Time with Patient: Greater than 30 (spent 45 minutes with patient)
[2019-12-25] MEDS: HYDROmorphone 0.5 MG/0.5 ML SYRINGE IVP PRN (02:55)
[2019-12-25] MEDS: MULTIVITAMINS, THERA 1 EACH TAB PO SCH (08:36)
[2019-12-25] MEDS: METOPROLOL TARTRATE 25 MG TAB PO SCH (08:36)
[2019-12-25] MEDS: PANTOPRAZOLE 40 MG TABLET PO SCH (08:36)
[2019-12-25] MEDS: HYDROcodone/APAP 10-325MG 1 EACH TAB PO PRN ×2 (08:36→15:48)
[2019-12-25] MEDS: DIVALPROEX 500 MG TABLET.DR PO SCH ×2 (08:36→15:48)
[2019-12-25] MEDS: LISINOPRIL 10 MG TAB PO SCH (08:36)
[2019-12-25] MEDS: BACLOFEN 10 MG TAB PO SCH (08:36)
[2019-12-25] MEDS: PRIMIDONE 50 MG TAB PO SCH ×2 (08:36→15:48)
[2019-12-25 08:59] LABS: ALT 8 U/L (4-34); AST 23 U/L (14-36); African American GFR (CKD) >90 (>60 ml/min/1.73 sqM); Albumin 4.4 g/dL (3.5-5.0); Alkaline Phosphatase 82 U/L (38-126); Anion Gap 11 mmol/L; Blood Urea Nitrogen 18 mg/dL (7-17); Calcium 10.2 mg/dL (8.4-10.2); Carbon Dioxide 25 mmol/L (22-30); Chloride 102 mmol/L (98-107); Glucose 102 mg/dL (74-99); Non-African American GFR(CKD) >90 (>60 ml/min/1.73 sqM); Potassium 5.4 mmol/L (3.5-5.1); Sodium 138 mmol/L (137-145); Total Bilirubin 0.5 mg/dL (0.2-1.3)
[2019-12-25 10:15] LABS: Basophils % (A) 0 %; Eosinophils # (A) 0.1 k/uL (0-0.7); Eosinophils % (A) 1 %; Hypochromasia Slight; Lymphocytes # (A) 3.3 k/uL (1.0-4.8); Lymphocytes % (A) 37 %; MCH 29.2 pg (25.0-35.0); MCHC 31.8 g/dL (31.0-37.0); MCV 91.8 fL (80.0-100.0); Mean Platelet Volume 9.5; Monocytes # (A) 0.7 k/uL (0-1.0); Monocytes % (A) 8 %; Neutrophils # (A) 4.6 k/uL (1.3-7.7); Neutrophils % (A) 52 %; Platelet Count 230 k/uL (150-450); RBC 5.12 m/uL (3.80-5.40); RDW 15.2 % (11.5-15.5); WBC 8.9 k/uL (3.8-10.6)
[2019-12-25] MEDS ORDERED: SODIUM POLYSTYRENE SULFONATE 15 GM/60 ML BOTTLE PO STA (11:56)
[2019-12-25 14:57] VITALS: BP 119/78; PULSE 71; RESP 16; TEMP 98.4
--- NOTE | 2019-12-25 15:57 | P.DS ---
Providers Date of admission: 12/22/19 11:37 Expected date of discharge: 12/25/19 Attending physician: Jayashree Torres Consults: 12/22/19 12:19 Consult Physician Routine Consulting Provider: Edis Prather Consult Reason/Comments: neck masses Do you want consulting provider notified?: Yes Placement Type Exists?: Yes 12/24/19 10:22 Consult Physician Routine Consulting Provider: Sandhya Isaacs Consult Reason/Comments: slurred speech Do you want consulting provider notified?: Yes Primary care physician: Jayashree Melissa [facility] Course: Discharge diagnosis 1. Neck pain with CAT scan showing multiple enhancing masses around the bilateral carotids of which only encases the internal carotid artery partially and Allen encases the right external carotid artery. There is are similar le sions within the mediastinum. Patient's oncology services. They felt that these masses are likely benign. They'll follow up with further blood work in the office. Catecholamine blood work results are still pending. PTH was 92 and calcium 10.2. Also note they did do a computed tomography scan of the chest abdomen and pelvis with contrast did show pretracheal enlarged lymph node or mass that does not change compared to the computed tomography scan of the thoracic fine spine on 2007 and suggestive of benign disease. Thyroid ultrasound did show a solid mass adjacent carotid artery right neck. 2. 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 Prior history of smoking quit about 5 years ago 4. Seizure disorder continue with the Depakote 5. Essential Hypertension: Resume lisinopril and metoprolol 6. History of myocardial infarction and coronary artery disease with cardiac stents 7. History of peripheral vascular disease 8. History of COPD stable 9. History of right leg DVT status post treatment with Coumadin several years ago 10. Prior history of IV drug use over 50 years ago 11. Hyperkalemia: Potassium 5.4 discharge. Kayexalate given. We'll hold DEANDRE inhibitor until patient evaluated in the office. Recommend repeating BMP in 1 week Hospital course This is a 64-year-old female with a known past medical history of nicotine use, hypertension seizure, myocardial infarction, coronary artery disease with stents, pacemaker, right leg DVT several years ago treated with Coumadin, peripheral vascular disease and a remote history of IV drug use over 50 years ago. Patient also has a MediPort in which she gets blood draws for her seizure medication levels. Patient is a direct admit from Dr. Torres's office. She has been having neck pain bilaterally. Patient had been having issues with her MediPort and unable to get blood drawn's from it. She went to Dr. 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 Estimated 60% diameter reduction proximal right internal carotid artery. Multiple enhancing masses noted about the bilateral carotids one of which encases the internal carotid artery partially and fully encases the right external carotid artery. There are similar lesions within the mediastinum. Differential diagnostic possibilities include enhancing adenopathy although glomus tumor is certainly within the differential. Patient has been admitted to the hospital oncology has been placed on consult. Patient denies any prior history of cancer. She does admit to having some difficulty with swallowing. She denies any chest pain or shortness of breath. She denies any bowel movement changes or urinary symptoms. She denies any fevers chills or sweats. On 12/24/2019 patient was seen and examined on the medical floor she is alert and oriented 3 in no apparent distress she is still complaining of neck pain otherwise she denies any complaints there is no fever or chills no headache or dizziness no chest pain no shortness of breath no cough no nausea or vomiting no abdominal pain no diarrhea no burning with urination no frequency or urgency no hematuria, patient had slurred speech which has been worsening at this time will obtain brain MRI and consult neurology. 12/25/2019 patient is medically stable for discharge. She's been cleared by oncology and neurology services. Patient's neck pain is under control with the [place] and baclofen. Discussed case with oncology service. They felt that the masses are likely benign and not malignant. The recommending a follow-up in 9- 10 days. They need time for the catecholamine levels to be back. PTH is elevated at 92 and calcium is normal at 10.2 at discharge. Patient following up with oncology regarding lab results. Also potassium was elevated at 5.4. Aissatou russell received a dose of Kayexalate. Her DEANDRE inhibitor was discontinued. We'll continue holding the DEANDRE inhibitor. Will have patient follow up with Dr. Torres in 1 week. At that time patient needs to have a repeat BMP. Blood pressures is stable at discharge. During consultation patient did have a few lower blood pressures. Patient is eating and drinking without difficulty. Patient seen by neurology regarding slurred speech. This has resolved. During neurologist exam there is no evidence of slurred speech. They did note a tremor in the bilateral extremities which patient is being treated for. I performed an examination of the patient and discussed their management with the physician Regional Account Executive. I have reviewed the Physician Regional Account Executive's notes and agree with the documented findings and plan of care Patient Condition at Discharge: Stable Plan - Discharge Summary Discharge Rx Participant: No New Discharge Prescriptions: New Baclofen [Lioresal] 10 mg PO BID #20 tab Continue Metoprolol Tartrate [Lopressor] 25 mg PO BID Primidone [Mysoline] 50 mg PO TID HYDROcodone/APAP 10-325MG [[place] 10-325] 1 tab PO Q8H Omeprazole 20 mg PO BID Multivitamins, Thera [Multivitamin (formulary)] 1 tab PO DAILY Lactose-Reduced Food [Ensure Plus] 1 can PO BID Estradiol Cream [Estrace Cream 0.01%] 1 gm VAGINAL Q3D Aspirin EC [Ecotrin Low Dose] 81 mg PO DAILY Divalproex [Depakote] 500 mg PO TID Discontinued Lisinopril [Zestril] 10 mg PO DAILY Discharge Medication List Metoprolol Tartrate [Lopressor] 25 mg PO BID 10/02/16 [History] Primidone [Mysoline] 50 mg PO TID 05/20/18 [History] Aspirin EC [Ecotrin Low Dose] 81 mg PO DAILY 12/22/19 [History] Divalproex [Depakote] 500 mg PO TID 12/22/19 [History] Estradiol Cream [Estrace Cream 0.01%] 1 gm VAGINAL Q3D 12/22/19 [History] HYDROcodone/APAP 10-325MG [[place] 10-325] 1 tab PO Q8H 12/22/19 [History] Lactose-Reduced Food [Ensure Plus] 1 can PO BID 12/22/19 [History] Multivitamins, Thera [Multivitamin (formulary)] 1 tab PO DAILY 12/22/19 [History] Omeprazole 20 mg PO BID 12/22/19 [History] Baclofen [Lioresal] 10 mg PO BID #20 tab 12/25/19 [Rx] Follow up Appointment(s)/Referral(s): Jayashree Torres MD [Primary Care Provider] - 1 Week Edis Prather MD [STAFF PHYSICIAN] - 10 Days Activity/Diet/Wound Care/Special Instructions: Diet: cardiac, low potassium Activity: as tolerated Discharge Disposition: HOME SELF-CARE
== END 2019-12-25 16:42 | disposition home or self-care (01) | DRG 607 ==
LOC: 6NMEDSUR 11:37
PROVIDERS: ADMIT Internal Medicine; ATTEND Internal Medicine
DX: R22.1 Localized swelling, mass and lump, neck (principal); I65.22 Occlusion and stenosis of left carotid artery; I73.9 Peripheral vascular disease, unspecified; J44.9 Chronic obstructive pulmonary disease, unspecified; I25.10 Atherosclerotic heart disease of native coronary artery without angina pectoris; I10 Essential (primary) hypertension; G40.909 Epilepsy, unspecified, not intractable, without status epilepticus; F41.9 Anxiety disorder, unspecified; E87.5 Hyperkalemia; E78.5 Hyperlipidemia, unspecified; F31.9 Bipolar disorder, unspecified; R47.81 Slurred speech; Z95.5 Presence of coronary angioplasty implant and graft; I25.2 Old myocardial infarction; Z90.710 Acquired absence of both cervix and uterus; Z87.891 Personal history of nicotine dependence; Z87.19 Personal history of other diseases of the digestive system; Z86.73 Personal history of transient ischemic attack (TIA), and cerebral infarction without residual deficits; Z86.718 Personal history of other venous thrombosis and embolism; Z82.49 Family history of ischemic heart disease and other diseases of the circulatory system; Z80.0 Family history of malignant neoplasm of digestive organs; Z79.899 Other long term (current) drug therapy; Z79.82 Long term (current) use of aspirin
CPT/HCPCS: 36410; 71260; 74177; 76536; 76937; 80053; 83605; 83970; 84439; 84443; 84481; 85025; 87040

== ENCOUNTER → 2020-12-12 | Outpatient (CLI) | payer OTHER ==
--- NOTE | 2020-12-12 15:10 | XR ---
EXAMINATION TYPE: XR thoracic spine 2V DATE OF EXAM: 12/12/2020 COMPARISON: None HISTORY: Upper back pain TECHNIQUE: Three-view thoracic spine FINDINGS: There are 12 thoracic type vertebral bodies. Pedicles are intact. There is mild scoliosis c onvexity to the left in the upper thoracic spine convexity to the right in the lower thoracic spine. Minimal spondylosis within the mid thoracic spine. Vertebral body alignment is otherwise normal. Vert ebral body heights are preserved. IMPRESSION: 1. Scoliosis with mild diffuse degenerative disc changes thoracic spine
== END | disposition home or self-care (01) ==
LOC: RADXRMAIN 12:48
PROVIDERS: ATTEND Internal Medicine
DX: M47.814 Spondylosis without myelopathy or radiculopathy, thoracic region (principal); M41.84 Other forms of scoliosis, thoracic region
CPT/HCPCS: 72070

== ENCOUNTER → 2020-12-13 | Outpatient (CLI) | payer OTHER ==
[2020-12-13 21:08] LABS: Eosinophils # (A) 0.08 X 10*3/uL (0.04-0.35); Eosinophils % (A) 0.8 %; HCT 45.6 % (37.2-46.3); HGB 14.4 g/dL (12.0-15.0); Lymphocytes # (A) 4.03 X 10*3/uL (0.90-5.00); Lymphocytes % (A) 41.4 %; MCH 28.3 pg (27.0-32.0); MCHC 31.6 g/dL (32.0-37.0); MCV 89.6 fL (80.0-97.0); Mean Platelet Volume 9.8 fL (9.5-12.2); Monocytes # (A) 0.77 X 10*3/uL (0.20-1.00); Monocytes % (A) 7.9 %; Neutrophils # (A) 4.73 X 10*3/uL (1.80-7.70); Neutrophils % (A) 48.6 %; Platelet Count 337 X 10*3/uL (140-440); RBC 5.09 X 10*6/uL (4.10-5.20); RDW 17.1 % (11.5-14.5); WBC 9.74 X 10*3/uL (4.50-10.00)
[2020-12-14 00:17] LABS: Anion Gap 8.1 mmol/L (4.00-12.00); Calcium 9.7 mg/dL (8.7-10.3); Carbon Dioxide 25.9 mmol/L (21.6-31.8); Potassium 4.7 mmol/L (3.5-5.5)
[2020-12-14 00:48] LABS: African American GFR (CKD) 90.3 (60.0-200.0); Albumin 4.9 g/dL (3.80-4.90); Albumin/Globulin Ratio 1.96 (1.60-3.17); Globulin 2.5 g/dL (1.6-3.3); Non-African American GFR(CKD) 77.9 (60.0-200.0); Total Bilirubin 0.3 mg/dL (0.2-1.2); Total Protein 7.4 g/dL (6.2-8.2)
== END | disposition home or self-care (01) ==
LOC: LABWHC1 12:21
DX: D44.6 Neoplasm of uncertain behavior of carotid body (principal)
CPT/HCPCS: 36415; 80053; 83835; 85025

== ENCOUNTER 2021-02-25 17:44 | Emergency (ER) | payer OTHER ==
[2021-02-25 17:59] VITALS: BP 115/72; PULSE 74; RESP 20; TEMP 98.5
[2021-02-25] MEDS ORDERED: KETOROLAC 15 MG/ML 1 ML VIAL IVP STA (18:40)
[2021-02-25] MEDS ORDERED: SODIUM CHLORIDE 0.9% 500 ML 500 ML IV ONE (18:40)
--- NOTE | 2021-02-25 19:00 | ED ---
SOB HPI - General Chief Complaint: Shortness of Breath Stated Complaint: Covid+/headache/body aches Time Seen by Provider: 02/25/21 18:20 Source: patient Mode of arrival: ambulatory Limitations: physical limitation - History of Present Illness Initial Comments: This is a 65-year-old female presenting for 4 days of cough and body aches headaches. Patient states that she tested positive for [place] she states that she has had cough body aches and headaches for the past 4 days. denies chest pain but states it feels restrictive like she cant take a deep breath. Denies calf pain, hemoptysis, LE swelling. Patient states taht she has no sharp chest pain, but does have hx of DVT/PE. Patient admits ot headaches, without neck stiffness, photophobia/visual changes. Dneies localized weakness, or sensation deficits. pt denies falls, nausea, vomiting, abdominal pain, diarrhea, rashes. Patient told to come to the ER for evaluation by PCP. pt has no additional complaints or concerns. she appears nontoxic saturating at 93% on RA. - Related Data Home Medications Medication Instructions Recorded Confirmed Metoprolol Tartrate [Lopressor] 25 mg PO BID 10/02/16 11/28/20 Primidone [Mysoline] 50 mg PO TID 05/20/18 11/28/20 Divalproex [Depakote] 500 mg PO TID 12/22/19 11/28/20 HYDROcodone/APAP 10-325MG [[place] 1 tab PO Q8H 12/22/19 11/28/20 10-325] Lactose-Reduced Food [Ensure Plus] 1 can PO BID 12/22/19 11/28/20 Multivitamins, Thera [Multivitamin 1 tab PO DAILY 12/22/19 11/28/20 (formulary)] Omeprazole 20 mg PO BID 12/22/19 11/28/20 Ergocalciferol [Vitamin D2] 50,000 unit PO Q7D 07/15/20 11/28/20 Previous Rx's Medication Instructions Recorded Baclofen [Lioresal] 10 mg PO BID #20 tab 12/25/19 Allergies Allergy/AdvReac Type Severity Reaction Status Date / Time iodine Allergy Severe Facial Verified 02/25/21 17:59 Swelling Penicillins Allergy Severe facial Verified 02/25/21 17:59 swelling Review of Systems ROS Statement: Those systems with pertinent positive or pertinent negative responses have been documented in the HPI. ROS Other: All systems not noted in ROS Statement are negative. Past Medical History Past Medical History: Asthma, Blood Disorder, Chest Pain / Angina, COPD, CVA/TIA, Deep Vein Thrombosis (DVT), Hyperlipidemia, Hypertension, Liver Disease, Memory Impairment, Pneumonia, Seizure Disorder, Skin Disorder, Syncope, Vascular Disorder Additional Past Medical History / Comment(s): Last seizure March 2016, heart Murmur, DVT R leg 1998, TIA, PVOD, chronic back pain, DDD, hepatitis B, migraines, urine incontinence at times, eczema yrs ago, anemia, sinusitis, colon polyps, past fractures R foot little toe and L foot fx., throat tumors History of Any Multi-Drug Resistant Organisms: MRSA Date of last positivie culture/infection: 2008 MDRO Source:: legs Past Surgical History: AICD, Heart Catheterization With Stent, Hysterectomy, Pacemaker Additional Past Surgical History / Comment(s): 2012 AICD/pacer, 2011 cardiac cath-no intervention, colonoscopy with polypectomy, tumor removed in throat, dasia filter 2006, angiograms, stent to bilateral legs, L jugular vein tumor removed, infusaport for blood draws r/t coumadin monitoring. Past Anesthesia/Blood Transfusion Reactions: No Reported Reaction Additional Past Anesthesia/Blood Transfusion Reaction / Comment(s): Pt states she received blood in the 1969's without reaction. Date of Last Stent Placement:: na Type of Cardiac Device: Permanent Pacemaker, AICD Device Placement Date:: 2012 Past Psychological History: Anxiety, Bipolar, Depression Smoking Status: Former smoker - Past Family History Father History Unknown: Yes Family Medical History: Cancer, CVA/TIA, Myocardial Infarction ([place]) Additional Family Medical History / Comment(s): Father had colon cancer. He is 80 yrs old. General Exam Limitations: physical limitation Course Vital Signs 02/25/21 17:56 Temperature 98.5 F Pulse Rate 74 Respiratory 20 Rate Blood Pressure 115/72 O2 Sat by Pulse 93 L Oximetry Medical Decision Making - Medical Decision Making advised work up, secondary to hx of PE and now current diagnosis of covid. pt left against medical advice. didnt want to be here anymore aware of risk of , disability/worsening condition. Disposition Clinical Impression: Left against medical advice Disposition: Left Against Medical Advice Condition: Undetermined Is patient prescribed a controlled substance at d/c from ED?: No Referrals: Jayashree Torres MD [Primary Care Provider] - 1-2 days Time of Disposition: 19:16
== END 2021-02-25 19:18 | disposition left against medical advice (07) ==
LOC: EC 17:44
DX: R06.02 Shortness of breath (principal); Z53.29 Procedure and treatment not carried out because of patient's decision for other reasons; E78.5 Hyperlipidemia, unspecified; G40.909 Epilepsy, unspecified, not intractable, without status epilepticus; I10 Essential (primary) hypertension; J44.9 Chronic obstructive pulmonary disease, unspecified; Z86.711 Personal history of pulmonary embolism; Z86.718 Personal history of other venous thrombosis and embolism; Z86.73 Personal history of transient ischemic attack (TIA), and cerebral infarction without residual deficits; Z87.19 Personal history of other diseases of the digestive system; Z87.891 Personal history of nicotine dependence; Z95.0 Presence of cardiac pacemaker; Z88.0 Allergy status to penicillin; Z82.49 Family history of ischemic heart disease and other diseases of the circulatory system
CPT/HCPCS: 99284

== ENCOUNTER 2021-02-28 15:43 | Emergency (ER) | payer OTHER ==
[2021-02-28] MEDS ORDERED: ALBUTEROL HFA INHALER INHALATION STA (16:19)
--- NOTE | 2021-02-28 16:23 | ED ---
Chest Pain HPI - General Chief Complaint: Chest Pain Stated Complaint: Covid+, MAGI Time Seen by Provider: 02/28/21 15:59 Source: patient, RN notes reviewed Mode of arrival: ambulatory Limitations: no limitations - History of Present Illness Initial Comments: Is a 65-year-old female who presents with complaints of chest pain shortness of breath. She was diagnosed with COVID-19 3 days ago. She has symptoms that started 2-3 days before that. He has shortness of breath exertional dyspnea she states she's had a cough with white phlegm fevers chills and sweats. She is a former smoker who quit for 5 months ago she does have a history of emphysema she states. MD Complaint: chest pain, other - Related Data Home Medications Medication Instructions Recorded Confirmed Metoprolol Tartrate [Lopressor] 25 mg PO BID 10/02/16 02/28/21 Primidone [Mysoline] 50 mg PO TID 05/20/18 02/28/21 Divalproex [Depakote] 500 mg PO TID 12/22/19 02/28/21 HYDROcodone/APAP 10-325MG [[place] 1 tab PO Q8H 12/22/19 02/28/21 10-325] Multivitamins, Thera [Multivitamin 1 tab PO DAILY 12/22/19 02/28/21 (formulary)] Omeprazole 40 mg PO DAILY 12/22/19 02/28/21 ALPRAZolam [Xanax] 0.25 mg PO TID PRN 02/28/21 02/28/21 Baclofen [Lioresal] 10 mg PO BID PRN 02/28/21 02/28/21 Prasugrel [Effient] 10 mg PO DAILY 02/28/21 02/28/21 Zolpidem [Ambien] 5 mg PO HS PRN 02/28/21 02/28/21 Allergies Allergy/AdvReac Type Severity Reaction Status Date / Time iodine Allergy Severe Facial Verified 02/28/21 15:50 Swelling Penicillins Allergy Severe facial Verified 02/28/21 15:50 swelling Review of Systems ROS Statement: Those systems with pertinent positive or pertinent negative responses have been documented in the HPI. ROS Other: All systems not noted in ROS Statement are negative. EKG Findings - EKG Results: EKG: interpreted by OMERO (Atrial paced rhythm of 66 [place] interval 202 QRS 74 QT since QTC 458/40) Past Medical History Past Medical History: Asthma, Blood Disorder, Chest Pain / Angina, COPD, CVA/TIA, Deep Vein Thrombosis (DVT), Hyperlipidemia, Hypertension, Liver Dise ase, Memory Impairment, Pneumonia, Seizure Disorder, Skin Disorder, Syncope, Vascular Disorder Additional Past Medical History / Comment(s): Last seizure March 2016, heart Murmu r, DVT R leg 1998, TIA, PVOD, chronic back pain, DDD, hepatitis B, migraines, urine incontinence at times, eczema yrs ago, anemia, sinusitis, colon polyps, past fractures R foot little toe and L foot fx., throat tumors History of Any Multi-Drug Resistant Organisms: MRSA Date of last positivie culture/infection: 2008 MDRO Source:: legs Past Surgical History: AICD, Heart Catheterization With Stent, Hysterectomy, Pacemaker Additional Past Surgical History / Comment(s): 2012 AICD/pacer, 2011 cardiac cath-no intervention, colonoscopy with polypectomy, tumor removed in throat, dasia filter 2006, angiograms, stent to bilateral legs, L jugular vein tumor removed, infusaport for blood draws r/t coumadin monitoring. Past Anesthesia/Blood Transfusion Reactions: No Reported Reaction Additional Past Anesthesia/Blood Transfusion Reaction / Comment(s): Pt states she received blood in the 1970's without reaction. Date of Last Stent Placement:: na Type of Cardiac Device: Permanent Pacemaker, AICD Device Placement Date:: 2012 Past Psychological History: Anxiety, Bipolar, Depression Smoking Status: Former smoker Past Alcohol Use History: None Reported Past Drug Use History: Marijuana - Past Family History Father History Unknown: Yes Family Medical History: Cancer, CVA/TIA, Myocardial Infarction ([place]) Additional Family Medical History / Comment(s): Father had colon cancer. He is 80 yrs old. General Exam - General Exam Comments Initial Comments: Pezzer well-developed asthenic appearing female who is awake alert oriented 3 Limitations: no limitations General appearance: alert, anxious Head exam: Present: atraumatic, normocephalic, normal inspection Eye exam: Present: normal appearance, PERRL, EOMI. Absent: scleral icterus, conjunctival injection, periorbital swelling ENT exam: Present: mucous membranes dry Neck exam: Present: normal inspection, full ROM, other. Absent: tenderness, meningismus, lymphadenopathy Respiratory exam: Present: wheezes, decreased breath sounds. Absent: respiratory distress, rales, rhonchi, stridor Cardiovascular Exam: Present: regular rate, normal rhythm, normal heart sounds. Absent: systolic murmur, diastolic murmur, rubs, gallop, clicks GI/Abdominal exam: Present: soft, normal bowel sounds. Absent: distended, tenderness, guarding, rebound, rigid Extremities exam: Present: normal inspection, full ROM, normal capillary refill. Absent: tenderness, pedal edema, joint swelling, calf tenderness Back exam: Present: normal inspection Neurological exam: Present: alert, oriented X3, CN II-XII intact Psychiatric exam: Present: normal affect, normal mood Skin exam: Present: warm, dry, intact, normal color. Absent: rash Course Vital Signs 02/28/21 02/28/21 15:44 19:16 Temperature 98.3 F Pulse Rate 80 Respiratory 16 18 Rate Blood Pressure 165/91 O2 Sat by Pulse 94 L Oximetry Chest Pain MDM - MDM Did discuss the findings with the patient with Dr. Guevara. Patient's imaging studies are unremarkable. Patient is a candidate for Covid antibody ad ministration and patient be discharged after the administration. She is agreement with this. Disposition Clinical Impression: COVID-19, Viral syndrome Disposition: HOME SELF-CARE Condition: Good Instructions (If sedation given, give patient instructions): Viral Syndrome (ED) Is patient prescribed a controlled substance at d/c from ED?: No Referrals: Jayashree Torres MD [Primary Care Provider] - 1-2 days
[2021-02-28 16:43] LABS: ALT 7 U/L (4-34); AST 25 U/L (14-36); African American GFR (CKD) >90 (>60 ml/min/1.73 sqM); Albumin 4.4 g/dL (3.5-5.0); Alkaline Phosphatase 90 U/L (38-126); Anion Gap 8 mmol/L; Blood Urea Nitrogen 14 mg/dL (7-17); Calcium 9.8 mg/dL (8.4-10.2); Carbon Dioxide 32 mmol/L (22-30); Chloride 99 mmol/L (98-107); Creatine Kinase 41 U/L (30-135); Glucose 84 mg/dL (74-99); Magnesium 1.9 mg/dL (1.6-2.3); Non-African American GFR(CKD) 84 (>60 ml/min/1.73 sqM); Potassium 5.4 mmol/L (3.5-5.1); Sodium 139 mmol/L (137-145); Total Bilirubin 0.3 mg/dL (0.2-1.3); Total Protein 7.8 g/dL (6.3-8.2)
[2021-02-28 16:44] LABS: Basophils # (A) 0.1 k/uL (0-0.2); Basophils % (A) 1 %; Eosinophils # (A) 0.1 k/uL (0-0.7); Eosinophils % (A) 1 %; HCT 44.2 % (34.0-46.0); HGB 14.1 gm/dL (11.4-16.0); Lymphocytes # (A) 3.2 k/uL (1.0-4.8); Lymphocytes % (A) 35 %; MCH 29.3 pg (25.0-35.0); MCHC 31.9 g/dL (31.0-37.0); MCV 91.7 fL (80.0-100.0); Mean Platelet Volume 6.6; Monocytes # (A) 0.7 k/uL (0-1.0); Monocytes % (A) 7 %; Neutrophils # (A) 5.1 k/uL (1.3-7.7); Neutrophils % (A) 54 %; Platelet Count 310 k/uL (150-450); RBC 4.81 m/uL (3.80-5.40); RDW 15.7 % (11.5-15.5); WBC 9.3 k/uL (3.8-10.6)
[2021-02-28 16:59] LABS: Partial Thromboplastin Time 26.2 sec (22.0-30.0); Prothrombin Time 10.4 sec (9.0-12.0)
[2021-02-28 17:22] LABS: D-Dimer 1.02 mg/L FEU (<0.60)
--- NOTE | 2021-02-28 17:24 | XR ---
EXAMINATION TYPE: XR chest 2V DATE OF EXAM: 02/28/2021 COMPARISON: 05/20/2018 HISTORY: Difficulty breathing TECHNIQUE: 2 views FINDINGS: Heart is normal. Lungs are clear of consolidation. There are no hilar masses. Thoracic aort a is atheromatous. There is left axillary pacemaker. There is right central venous catheter with tip in the superior vena cava. IMPRESSION: No active cardiopulmonary disease. Normal heart. No adverse change.
[2021-02-28] MEDS ORDERED: methylPREDNISolone SOD SUCCI 125 MG/2 ML VIAL IV STA (17:27)
[2021-02-28] MEDS ORDERED: FAMOTIDINE 20 MG/2 ML VIAL IV STA (17:27)
[2021-02-28] MEDS ORDERED: diphenhydrAMINE 50 MG/ML 1 ML VIAL IVP STA (17:27)
--- NOTE | 2021-02-28 18:51 | CT ---
EXAMINATION TYPE: CT angio chest DATE OF EXAM: 02/28/2021 COMPARISON: None HISTORY: Elevated d-dimer. CT DLP: 207.3 mGycm Automated exposure control for dose reduction was used. CONTRAST: Performed with IV Contrast, patient injected with 100 mL of Isovue 370. Our 3-D post processed images. Heart size is normal. There is no pericardial effusion. There is no pleural effusion. There is no med iastinal adenopathy. Thoracic aorta is atheromatous. There is no aneurysm or dissection. The ascendin g aorta measures 3.3 cm. There is no evidence of filling defect in the pulmonary arteries. There is some mild pulmonary emphysema. There is mild subpleural reticular density in the right lower lobe adjacent to the spine consistent with scarring. There is minimal pleural reaction and subsegmen freddy atelectasis at the lung bases. The thoracic spine appears intact. There is no compression fracture. Sternum is intact. The ribs appe ar intact. IMPRESSION: Minimal pleural and pulmonary density consistent with scarring and subsegmental atelectasis. No suspi cious pulmonary mass. No evidence of pulmonary embolism. Pulmonary emphysema.
[2021-02-28 19:18] VITALS: RESP 18
[2021-02-28] MEDS ORDERED: SODIUM CHLORIDE 0.9% 50 ML IVPB ONE (19:45)
[2021-02-28] MEDS ORDERED: BAMLANIVIMAB (EUA) 700 MG, ETESEVIMAB (EUA) 1,400 MG in SODIUM CHLORIDE 0.9% 50 ML IVPB ONE (20:15)
[2021-02-28] MEDS ORDERED: LORazepam 2 MG/ML INJ IV STA (20:34)
[2021-02-28 22:11] VITALS: BP 137/95; PULSE 72; TEMP 98.6
== END 2021-02-28 22:11 | disposition home or self-care (01) ==
LOC: EC 15:43
DX: U07.1 COVID-19 (principal); E78.5 Hyperlipidemia, unspecified; F32.9 Major depressive disorder, single episode, unspecified; F41.9 Anxiety disorder, unspecified; G40.909 Epilepsy, unspecified, not intractable, without status epilepticus; I10 Essential (primary) hypertension; J44.9 Chronic obstructive pulmonary disease, unspecified; I20.9 Angina pectoris, unspecified; Z79.899 Other long term (current) drug therapy; Z82.49 Family history of ischemic heart disease and other diseases of the circulatory system; Z86.718 Personal history of other venous thrombosis and embolism; Z86.73 Personal history of transient ischemic attack (TIA), and cerebral infarction without residual deficits; Z87.19 Personal history of other diseases of the digestive system; Z87.891 Personal history of nicotine dependence; Z95.810 Presence of automatic (implantable) cardiac defibrillator; Z88.0 Allergy status to penicillin
CPT/HCPCS: 36415; 93005; 85379; 83880; 80053; 82550; 83605; 83735; 84484; 85025; 85610; 85730; 87040; 71046; 71275; 99285; 96374; 96375 ×2; J1200; J2930; Q9967; Q0245

== ENCOUNTER → 2021-03-13 | Outpatient (CLI) | payer OTHER ==
--- NOTE | 2021-03-13 10:54 | XR ---
EXAMINATION TYPE: XR chest 2V DATE OF EXAM: 03/13/2021 COMPARISON: 02/28/2021 HISTORY: Shortness of breath TECHNIQUE: Frontal and lateral views of the chest are obtained. FINDINGS: Scattered senescent parenchymal changes noted. Hyperinflation compatible with COPD. No evidence for infiltrate. No evidence for atelectasis. Heart size is stable. Mediastinal structures are stable and grossly unremarkable. No evidence for hilar prominence. Degenerative changes dorsal spine. IMPRESSION: 1. No evidence for acute pulmonary disease.
== END | disposition home or self-care (01) ==
LOC: RADXRMAIN 10:33
PROVIDERS: ATTEND Internal Medicine
DX: R06.02 Shortness of breath (principal)
CPT/HCPCS: 71046

== ENCOUNTER → 2021-04-18 | Outpatient (CLI) | payer OTHER ==
[2021-04-18 11:15] VITALS: BP 99/66; RESP 18; TEMP 98.2
[2021-04-18 11:18] VITALS: PULSE 69
--- NOTE | 2021-04-18 11:40 | P.GSHP ---
History of Present Illness H&P Date: 04/18/21 Chief Complaint: right breast lesion Maria Isabel is a 65 year old female seen in consultation for Dr. Vogel regarding a lesion in her right breast. She states it has been there for at least ten years and recently started turning color. Her last mammogram was a bilateral screening on [id number] this showed left breast asymmetry and ultrasound of the right breast with special views of the left breast was recommended a left breast mammogram was performed and a519 which was felt to be benign BIRADS 2 a right breast ultrasound was not reported. The patient states that she has bilateral nodular lesions on her breast and chest wall making given a mammogram painful and difficult. Additionally she has a Port-A-Cath; (she has history of seizures, it is for IV access, no history of cancer) in the right side which is uncomfortable for her to have a mammogram. She has a pacemaker on the left side. She does not feel any new lumps masses or nodules in either breast. She is not complaining of any nipple discharge. She has not had any recent trauma or infection in the breast. CT angio January 2021 was done showing minimal pleural and pulmonary density consistent with scarring and subsegmental atelectasis, no suspicious pulmonary mass, no evidence of pulmonary embolism, pulmonary emphysema; this was done following COVID Chest [place]ray [place] [id number] no evidence for acute pulmonary disease caffeine: 2 cups/day nicotine: pack 3 days/ stopped 6 months ago chocolate: occasional hormones: none Family History: father: colon, lung cancer paternal aunt: breast cancer Hormonal History: menarche: 9 M1, breast fed: no, age at first : 18 menopause: hysterectomy at 41; took ovaries; no cancer BCP: 4 years hormones: none Surgical History: 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 DVT in the past pacemaker port a cath tumor removed from neck/ non cancer cardiac stints history of hepatitis C Medical History: heart attack CVA HTN history of seizures - Constitutional Constitutional: Denies chills, Denies fever - EENT Comment: cataracts bilateral Ears: left: decreased hearing Ears, nose, mouth and throat: Denies headache, Denies sore throat - Breasts Breasts: bilateral: as per HPI - Cardiovascular Comment: [place] two stints, pacemaker - Respiratory Respiratory: Denies cough, Denies 7 - Gastrointestinal Gastrointestinal: Denies abdominal pain, Denies diarrhea, Denies nausea, Denies vomiting - Genitourinary (Female) Genitourinary: Denies dysuria, Denies hematuria - Menstruation Menstruation: Reports post hysterectomy - Musculoskeletal Comment: back pain Musculoskeletal: Denies myalgias - Integumentary Integumentary: Denies pruritus, Denies rash - Neurological Neurological: Denies numbness, Denies weakness - Psychiatric Psychiatric: Reports anxiety, Reports depression - Endocrine Endocrine: Denies fatigue, Denies weight change - Hematologic/Lymphatic Hematologic/Lymphatic: Reports as per HPI - Allergic/Immunologic Allergic/Immunologic: Reports seasonal allergies Past Medical History Past Medical History: Asthma, Blood Disorder, Chest Pain / Angina, COPD, CVA/TIA, Deep Vein Thrombosis (DVT), Hyperlipidemia, Hypertension, Liver Disease, Memory Impairment, Pneumonia, Seizure Disorder, Skin Disorder, Syncope, Vascular Disorder Additional Past Medical History / Comment(s): Last seizure March 2016, heart Murmur, DVT R leg 1998, TIA, PVOD, chronic back pain, DDD, hepatitis B, migraines, urine incontinence at times, eczema yrs ago, anemia, sinusitis, colon polyps, past fractures R foot little toe and L foot fx., throat tumors History of Any Multi-Drug Resistant Organisms: MRSA Date of last positivie culture/infection: 2008 MDRO Source:: legs Past Surgical History: AICD, Heart Catheterization With Stent, Hysterectomy, Pacemaker Additional Past Surgical History / Comment(s): 2012 AICD/pacer, 2011 cardiac cath-no intervention, colonoscopy with polypectomy, tumor removed in throat, dasia filter 2006, angiograms, stent to bilateral legs, L jugular vein tumor removed, infusaport for blood draws r/t coumadin monitoring. Past Anesthesia/Blood Transfusion Reactions: No Reported Reaction Additional Past Anesthesia/Blood Transfusion Reaction / Comment(s): Pt states she received blood in the 1970's without reaction. Date of Last Stent Placement:: na Type of Cardiac Device: Permanent Pacemaker, AICD Device Placement Date:: 2012 Past Psychological History: Anxiety, Bipolar, Depression Additional Psychological History / Comment(s): Pt resides with her spouse. She uses no device at this time. She drives. She states her depression is increased but she is not suicidal-no thoughts or plans or suicide. Smoking Status: Former smoker Past Alcohol Use History: None Reported Additional Past Alcohol Use History / Comment(s): Pt started smoking in 1975 and quit in 2014. 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 - Past Family History Father History Unknown: Yes Family Medical History: Cancer, CVA/TIA, Myocardial Infarction ([place]) Additional Family Medical History / Comment(s): Father had colon cancer. He is 80 yrs old. Medications and Allergies Home Medications Medication Instructions Recorded Confirmed Type Metoprolol Tartrate [Lopressor] 25 mg PO BID 10/02/16 04/18/21 History Primidone [Mysoline] 50 mg PO TID 05/20/18 04/18/21 History Divalproex [Depakote] 500 mg PO TID 12/22/19 04/18/21 History HYDROcodone/APAP 10-325MG [[place] 1 tab PO Q8H 12/22/19 04/18/21 History 10-325] Multivitamins, Thera [Multivitamin 1 tab PO DAILY 12/22/19 04/18/21 History (formulary)] Omeprazole 40 mg PO DAILY 12/22/19 04/18/21 History ALPRAZolam [Xanax] 0.25 mg PO TID PRN 02/28/21 04/18/21 History Baclofen [Lioresal] 10 mg PO BID PRN 02/28/21 04/18/21 History Prasugrel [Effient] 10 mg PO DAILY 02/28/21 04/18/21 History Zolpidem [Ambien] 5 mg PO HS PRN 02/28/21 04/18/21 History Allergies Allergy/AdvReac Type Severity Reaction Status Date / Time iodine Allergy Severe Facial Verified 04/18/21 11:07 Swelling Penicillins Allergy Severe facial Verified 04/18/21 11:07 swelling wool Allergy Rash/Hives Unverified 04/18/21 11:07 Surgical - Exam Vital Signs Temp Pulse Resp BP Pulse Ox 98.2 F 73 18 99/66 99 04/18/21 11:12 04/18/21 11:12 04/18/21 11:12 04/18/21 11:12 04/18/21 11:12 BMI 19.8 - General moderate distress - Eyes normal ocular movement - ENT normal pinna - Neck no masses, trachea midline - Respiratory normal respiratory effort, clear to auscultation - Cardiovascular Rhythm: regular Heart Sounds: normal: S1, S2 - Abdomen Abdomen: soft, non tender, no guarding, no rigid, no rebound - Psychiatric oriented to time, oriented to person, oriented to place, speech is normal, memory intact Breast exam: BRA: sports bra medium Inspection: Attention to the area of concern in the right breast reveals an area of seborrheic keratosis nothing which would warrant interventional biopsy; bilateral grade 2/3 ptosis Palpation: Right breast: Multi-positional exam fibrofatty tissue, fibrocystic changes, no dominant masses or nodules of concern Right axilla: No adenopathy of concern Skin lesion right breast as noted/felt to be benign Left breast: Multi-positional exam fibrofatty tissue, fibrocystic changes, no dominant masses or nodules of concern Left axilla: No adenopathy of concern Assessment and Plan Assessment: Impression: heart attack CVA HTN history of seizures fibrocystic breast changes Seborrheic keratosis right breast Tumor bilateral jugular and carotid follow that [facility], ? how long she has had these Plan: 1. Patient does not need any intervention for the skin lesion on the right breast 2. Bilateral mammogram/further recommendation to follow this CC: Dr. Torres
--- NOTE | 2021-04-21 11:15 | MM ---
Reason for exam: screening (asymptomatic). Last mammogram was performed 1 year and 10 months ago. History: Patient is postmenopausal. Family history of breast cancer in aunt at age 60. Physical Findings: A clinical breast exam by your physician is recommended on an annual basis and results should be correlated with mammographic findings. MG Screening Mammo w CAD Bilateral CC and MLO view(s) were taken. Prior study comparison: June 05, 2019, left breast MG work up mamm w CAD LT. April 28, 2019, bilateral MG screening mammo w CAD. There are scattered fibroglandular densities. Left pacer limits compression and obscures portions of the breast. ASSESSMENT: Negative, BI-RAD 1 RECOMMENDATION: Routine screening mammogram of both breasts in 1 year.
== END ==
LOC: WWCWWP 10:55
PROVIDERS: ATTEND Surgery
DX: L82.1 Other seborrheic keratosis (principal); N60.11 Diffuse cystic mastopathy of right breast; N60.12 Diffuse cystic mastopathy of left breast; I10 Essential (primary) hypertension; I21.9 Acute myocardial infarction, unspecified; D44.6 Neoplasm of uncertain behavior of carotid body; D44.7 Neoplasm of uncertain behavior of aortic body and other paraganglia; Z86.73 Personal history of transient ischemic attack (TIA), and cerebral infarction without residual deficits; Z86.69 Personal history of other diseases of the nervous system and sense organs; E78.5 Hyperlipidemia, unspecified; Z86.718 Personal history of other venous thrombosis and embolism; J44.9 Chronic obstructive pulmonary disease, unspecified; Z87.891 Personal history of nicotine dependence; Z95.0 Presence of cardiac pacemaker; Z88.0 Allergy status to penicillin; Z91.041 Radiographic dye allergy status
CPT/HCPCS: 77067

== ENCOUNTER 2021-11-03 12:05 | Emergency (ER) | payer OTHER ==
[2021-11-03] MEDS ORDERED: BAMLANIVIMAB (EUA) 700 MG, ETESEVIMAB (EUA) 1,400 MG in SODIUM CHLORIDE 0.9% 100 ML IVPB ONE (17:15)
[2021-11-03] MEDS ORDERED: SODIUM CHLORIDE 0.9% 50 ML IVPB ONE (17:15)
[2021-11-03] MEDS ORDERED: SODIUM CHLORIDE 0.9% 500 ML 500 ML IV ONE (17:28)
[2021-11-03] MEDS ORDERED: ONDANSETRON 4 MG/2 ML VIAL IVP STA (17:28)
[2021-11-03] MEDS ORDERED: KETOROLAC 15 MG/ML 1 ML VIAL IVP STA (17:28)
--- NOTE | 2021-11-03 18:33 | ED ---
General Adult HPI - General Chief complaint: Headache Stated complaint: SOB, cough Time Seen by Provider: 11/03/21 16:37 Source: patient Mode of arrival: wheelchair Limitations: no limitations - History of Present Illness Initial comments: 65 year-old female patient presents to the emergency department for evaluation of body aches, cough, congestion, and headache. States she was exposed to COVID and is concerned she may have it. Symptoms started two days ago. She reports mild fever and chills. States her appetite is decreased. She denies any vomiting or diarrhea. Has not been taking anything for her symptoms. She denies chest pain or shortness of breath. - Related Data Home Medications Medication Instructions Recorded Confirmed Metoprolol Tartrate [Lopressor] 12.5 mg PO BID 10/02/16 11/03/21 Primidone [Mysoline] 50 mg PO TID 05/20/18 11/03/21 Divalproex [Depakote] 1,000 mg PO TID 12/22/19 11/03/21 HYDROcodone/APAP 10-325MG [[place] 1 tab PO TID PRN 12/22/19 11/03/21 10-325] Multivitamins, Thera [Multivitamin 1 tab PO DAILY 12/22/19 11/03/21 (formulary)] ALPRAZolam [Xanax] 0.25 mg PO TID PRN 02/28/21 11/03/21 Baclofen [Lioresal] 10 mg PO HS PRN 02/28/21 11/03/21 Aspirin EC [Ecotrin Low Dose] 81 mg PO DAILY 11/03/21 11/03/21 Omeprazole 40 mg PO DAILY 11/03/21 11/03/21 Allergies Allergy/AdvReac Type Severity Reaction Status Date / Time iodine Allergy Severe Facial Verified 11/03/21 18:11 Swelling Penicillins Allergy Severe facial Verified 11/03/21 18:11 swelling wool Allergy Rash/Hives Verified 11/03/21 18:11 Review of Systems ROS Statement: Those systems with pertinent positive or pertinent negative responses have been documented in the HPI. ROS Other: All systems not noted in ROS Statement are negative. Past Medical History Past Medical History: Asthma, Blood Disorder, Chest Pain / Angina, COPD, CVA/TIA, Deep Vein Thrombosis (DVT), Hyperlipidemia, Hypertension, Liver Disease, Memory Impairment, Pneumonia, Seizure Disorder, Skin Disorder, Syncope, Vascular Disorder Additional Past Medical History / Comment(s): Last seizure March 2016, heart Murmur, DVT R leg 1998, TIA, PVOD, chronic back pain, DDD, hepatitis B, migraines, urine incontinence at times, eczema yrs ago, anemia, sinusitis, colon polyps, past fractures R foot little toe and L foot fx., throat tumors History of Any Multi-Drug Resistant Organisms: MRSA Date of last positivie culture/infection: 2008 MDRO Source:: legs Past Surgical History: AICD, Heart Catheterization With Stent, Hysterectomy, Pacemaker Additional Past Surgical History / Comment(s): 2012 AICD/pacer, 2011 cardiac cath-no intervention, colonoscopy with polypectomy, tumor removed in throat, dasia filter 2006, angiograms, stent to bilateral legs, L jugular vein tumor removed, infusaport for blood draws r/t coumadin monitoring. Past Anesthesia/Blood Transfusion Reactions: No Reported Reaction Additional Past Anesthesia/Blood Transfusion Reaction / Comment(s): Pt states she received blood in the 1969's without reaction. Date of Last Stent Placement:: na Type of Cardiac Device: Permanent Pacemaker, AICD Device Placement Date:: 2012 Past Psychological History: Anxiety, Bipolar, Depression Smoking Status: Former smoker Past Alcohol Use History: None Reported Past Drug Use History: Marijuana - Past Family History Father History Unknown: Yes Family Medical History: Cancer, CVA/TIA, Myocardial Infarction ([place]) Additional Family Medical History / Comment(s): Father had colon cancer. He is 80 yrs old. General Exam Limitations: no limitations General appearance: alert, in no apparent distress, other (This is a well- developed, well-nourished adult female in no acute distress.) ENT exam: Present: normal exam, normal oropharynx, mucous membranes moist Respiratory exam: Present: normal lung sounds bilaterally. Absent: respiratory distress, wheezes, rales, rhonchi, stridor Cardiovascular Exam: Present: regular rate, normal rhythm, normal heart sounds. Absent: systolic murmur, diastolic murmur, rubs, gallop, clicks GI/Abdominal exam: Present: soft, normal bowel sounds. Absent: distended, tenderness, guarding, rebound, rigid Neurological exam: Present: alert, oriented X3, CN II-XII intact Psychiatric exam: Present: normal affect, normal mood Skin exam: Present: warm, dry, intact, normal color. Absent: rash Course Vital Signs 11/03/21 11/03/21 11/03/21 15:04 17:30 19:51 Temperature 100.1 F H 98.9 F 98.2 F Pulse Rate 96 89 Respiratory 20 16 Rate Blood Pressure 150/89 181/85 O2 Sat by Pulse 95 94 L Oximetry Medical Decision Making - Medical Decision Making 65-year-old female patient presents to the emergency department today for evaluation of upper respiratory symptoms, headache, fever. Physical examination is unremarkable. Lungs are clear to auscultation good air movement. She is speaking full sentences without difficulty. She certainly criteria to receive monoclonal antibody infusion. She tolerated the infusion without difficulty. We discharged follow-up with the primary care physician for recheck in 1-2 days. Return parameters were discussed in detail. She verbalizes understanding and agrees with this plan. My attending is Dr. Fine. - Lab Data Lab Results 11/03/21 Range/Units 15:06 Coronavirus (PCR) Detected A (Not Detectd) Disposition Clinical Impression: COVID-19 Disposition: HOME SELF-CARE Condition: Good Instructions (If sedation given, give patient instructions): Coronavirus Disease 2019 (COVID-19) Additional Instructions: Tips to help you feel better: -Maintain adequate fluid intake - especially water. -Rest, you are healing your body will require extra sleep. -Eat even if you do not feel like it - broth, jello, toast are fine if you cannot eat full meals. -Take tylenol and motrin alternating (if you have no allergies or have not been instructed to avoid these medications) to help with body aches and fevers. -Obtain over the counter vitamin C, zinc, and vitamin D3. -Take medications as prescribed. Follow-up with your primary care physician for recheck in 1-2 days. Return for any new, worsening, or concerning symptoms. Is patient prescribed a controlled substance at d/c from ED?: No Referrals: Jayashree Torres MD [Primary Care Provider] - 1-2 days Time of Disposition: 18:33
[2021-11-03 19:52] VITALS: BP 181/85; PULSE 89; RESP 16; TEMP 98.2
== END 2021-11-03 20:09 | disposition home or self-care (01) ==
LOC: EC 12:05
DX: U07.1 COVID-19 (principal); J45.909 Unspecified asthma, uncomplicated; E78.5 Hyperlipidemia, unspecified; I10 Essential (primary) hypertension; F41.9 Anxiety disorder, unspecified; F31.9 Bipolar disorder, unspecified; F12.90 Cannabis use, unspecified, uncomplicated; Z88.0 Allergy status to penicillin; Z86.73 Personal history of transient ischemic attack (TIA), and cerebral infarction without residual deficits; Z86.718 Personal history of other venous thrombosis and embolism; Z90.710 Acquired absence of both cervix and uterus; Z95.0 Presence of cardiac pacemaker; Z87.891 Personal history of nicotine dependence
CPT/HCPCS: 96374; 96375; 99284; M0245; 87635

== ENCOUNTER → 2022-04-22 | Outpatient (CLI) | payer MEDICARE ==
[2022-04-22 14:20] LABS: HCT 48.2 % (37.2-46.3); HGB 14.9 g/dL (12.0-15.0); MCH 28.8 pg (27.0-32.0); MCHC 30.9 g/dL (32.0-37.0); MCV 93.2 fL (80.0-97.0); Mean Platelet Volume 9.6 fL (9.5-12.2); NRBC Per 100 WBC 0 /100 WBCS (0.0-0.0); Platelet Count 312 X 10*3/uL (140-440); RBC 5.17 X 10*6/uL (4.10-5.20); RDW 15.3 % (11.5-14.5); WBC 11.07 X 10*3/uL (4.50-10.00)
[2022-04-22 14:54] LABS: ALT 9 U/L (8-44); AST 20 U/L (13-35); Albumin 4.5 g/dL (3.8-4.9); Albumin/Globulin Ratio 1.46 (1.60-3.17); Alkaline Phosphatase 88 U/L (41-126); BUN/Creat Ratio 19.48 Ratio (12.00-20.00); Blood Urea Nitrogen 17.3 mg/dL (9.0-27.0); Carbon Dioxide 25.1 mmol/L (20.0-27.5); Chloride 98 mmol/L (96-109); Globulin 3.1 g/dL (1.6-3.3); Glucose 98 mg/dL (70-110); LDL Cholesterol,Calculated 119.9 mg/dL (0.0-131.0); Non-African American GFR(CKD) 68.2 (60.0-200.0); Potassium 5.2 mmol/L (3.5-5.5); Sodium 138 mmol/L (135-145); Total Bilirubin <0.15 mg/dL (0.30-1.20); Total Protein 7.6 g/dL (6.2-8.2)
== END | disposition home or self-care (01) ==
LOC: LABWHC1 10:05
PROVIDERS: ATTEND Internal Medicine
DX: I10 Essential (primary) hypertension (principal); G40.89 Other seizures; E55.9 Vitamin D deficiency, unspecified
CPT/HCPCS: 36415; 80053; 80061; 82306; 84443; 85027

== ENCOUNTER 2022-10-17 15:19 | Emergency (ER) | payer MEDICARE, OTHER ==
[2022-10-17] MEDS ORDERED: MORPHINE SULFATE 4 MG/ML SYRINGE IVP STA (16:20)
[2022-10-17] MEDS ORDERED: ONDANSETRON 4 MG/2 ML VIAL IVP STA (16:20)
[2022-10-17] MEDS ORDERED: SODIUM CHLORIDE 0.9% 500 ML 500 ML IV STA (16:20)
--- NOTE | 2022-10-17 16:28 | ED ---
General Adult HPI - General Chief complaint: Skin/Abscess/Foreign Body Stated complaint: R arm sore Time Seen by Provider: 10/17/22 16:05 Source: patient, RN notes reviewed Mode of arrival: ambulatory Limitations: no limitations - History of Present Illness Initial comments: 66 year old female presents to the with complaints of right forearm redness and pain x1-2 weeks. States she scratched her forearm a couple weeks ago and has been washing the wound with peroxide and applying triple antibiotic ointment. Now has a larger area of erythema with a define border of swelling. States the forearm is throbbing and the skin is itching. Describes some clear thin drainage from the skin as well. Has not taken anything to treat her discomfort. Has not been seen by her PCP. Denies fever, but is chilled. No chest pain, shortness of breath, abdominal pain, or vomiting. 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 States she has a port in her chest, though it is not working. 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 Denies any history of diabetes. - Related Data Home Medications Medication Instructions Recorded Confirmed Metoprolol Tartrate [Lopressor] 12.5 mg PO BID 10/02/16 11/03/21 Primidone [Mysoline] 50 mg PO TID 05/20/18 11/03/21 Divalproex [Depakote] 1,000 mg PO TID 12/22/19 11/03/21 HYDROcodone/APAP 10-325MG [[place] 1 tab PO TID PRN 12/22/19 11/03/21 10-325] Multivitamins, Thera [Multivitamin 1 tab PO DAILY 12/22/19 11/03/21 (formulary)] ALPRAZolam [Xanax] 0.25 mg PO TID PRN 02/28/21 11/03/21 Baclofen [Lioresal] 10 mg PO HS PRN 02/28/21 11/03/21 Aspirin EC [Ecotrin Low Dose] 81 mg PO DAILY 11/03/21 11/03/21 Omeprazole 40 mg PO DAILY 11/03/21 11/03/21 Previous Rx's Medication Instructions Recorded Clindamycin [Cleocin] 450 mg PO TID 5 Days #75 capsule 10/17/22 Allergies Allergy/AdvReac Type Severity Reaction Status Date / Time iodine Allergy Severe Facial Verified 10/17/22 15:32 Swelling Penicillins Allergy Severe facial Verified 10/17/22 15:32 swelling wool Allergy Rash/Hives Verified 10/17/22 15:32 Review of Systems ROS Statement: Those systems with pertinent positive or pertinent negative responses have been documented in the HPI. ROS Other: All systems not noted in ROS Statement are negative. Past Medical History Past Medical History: Asthma, Blood Disorder, Chest Pain / Angina, COPD, CVA/TIA, Deep Vein Thrombosis (DVT), Hyperlipidemia, Hypertension, Liver Diseas e, Memory Impairment, Pneumonia, Seizure Disorder, Skin Disorder, Syncope, Vascular Disorder Additional Past Medical History / Comment(s): Last seizure March 2016, heart Murmur, DVT R leg 1998, TIA, PVOD, chronic back pain, DDD, hepatitis B, migraines, urine incontinence at times, eczema yrs ago, anemia, sinusitis, colon polyps, past fractures R foot little toe and L foot fx., throat tumors History of Any Multi-Drug Resistant Organisms: MRSA Date of last positivie culture/infection: 2008 MDRO Source:: legs Past Surgical History: AICD, Heart Catheterization With Stent, Hysterectomy, Pacemaker Additional Past Surgical History / Comment(s): 2012 AICD/pacer, 2011 cardiac cath-no intervention, colonoscopy with polypectomy, tumor removed in throat, dasia filter 2006, angiograms, stent to bilateral legs, L jugular vein tumor removed, infusaport for blood draws r/t coumadin monitoring. Past Anesthesia/Blood Transfusion Reactions: No Reported Reaction Additional Past Anesthesia/Blood Transfusion Reaction / Comment(s): Pt states she received blood in the 1970s without reaction. Date of Last Stent Placement:: na Type of Cardiac Device: Permanent Pacemaker, AICD Device Placement Date:: 2012 Past Psychological History: Anxiety, Bipolar, Depression Smoking Status: Former smoker Past Alcohol Use History: None Reported Past Drug Use History: Marijuana - Past Family History Father History Unknown: Yes Family Medical History: Cancer, CVA/TIA, Myocardial Infarction ([place]) Additional Family Medical History / Comment(s): Father had colon cancer. He is 80 yrs old. General Exam Limitations: no limitations General appearance: alert, in no apparent distress, other (Well-developed, well- appearing, thin female in no acute distress. ) Respiratory exam: Present: normal lung sounds bilaterally. Absent: respiratory distress, wheezes, rales, rhonchi, stridor Cardiovascular Exam: Present: regular rate, normal rhythm, normal heart sounds. Absent: systolic murmur, diastolic murmur, rubs, gallop, clicks Right Upper Arm exam: Present: normal inspection, full ROM. Absent: tenderness, swelling Elbow exam: Present: normal inspection, full ROM. Absent: tenderness, swelling Forearm Wrist exam: Present: tenderness, swelling, erythema (localized area of erythema 3.5cm x4 cm. well defined area of swelling surrounding erythematous area measuring approximately 5cm x6cm. Tenderness upon palpation. Minimal warmth when compared with left forearm.) Hand Wrist exam: Present: normal inspection, full ROM. Absent: tenderness, swelling Vascular: Present: normal capillary refill, radial pulse. Absent: vascular compromise, Pallo Neurological exam: Present: alert, oriented X3 Psychiatric exam: Present: normal affect, normal mood Course Vital Signs 10/17/22 10/17/22 15:29 18:56 Temperature 97.3 F L 98.1 F Pulse Rate 79 82 Respiratory 16 18 Rate Blood Pressure 106/58 140/72 O2 Sat by Pulse 96 97 Oximetry - Reevaluation(s) Reevaluation #1: 10/17/22 18:15 Upon reassessment, patient is resting more comfortably. Erythema and edema remain relatively unchanged. She will be discharged home with antibiotic treatment and encouraged to see PCP for recheck after 48-72 hours on antibiotic. Medical Decision Making - Medical Decision Making This is a pleasant 66-year-old female with multiple comorbidities who presents to the emergency department for evaluation if erythematous area on the right forearm. Patient states the site began as a small scratch, but has worsened over the past several days. Patient has been cleaning the wound with hydrogen peroxide and applying adhesive dressings. Patient is not diabetic. She was not bitten or scratched by an animal. Given morphine for pain and Benadryl for itching discomfort. Laboratory studies were obtained showing Mild leukocytosis (WBC 12.5). Blood cultures were drawn and are pending. Patient is started on clindamycin 3 times daily and instructed on proper wound care. Encouraged to follow up with her PCP for recheck next week. Return parameters were discussed in detail. Patient verbalizes understanding and agrees with this plan. Attending: Trachy - Lab Data Result diagrams: 10/17/22 17:15 10/17/22 17:15 Lab Results 10/17/22 10/17/22 Range/Units 17:15 17:15 WBC 12.5 H (3.8-10.6) k/uL RBC 4.54 (3.80-5.40) m/uL Hgb 14.3 (11.4-16.0) gm/dL Hct 42.1 (34.0-46.0) % MCV 92.8 (80.0-100.0) fL MCH 31.6 (25.0-35.0) pg MCHC 34.1 (31.0-37.0) g/dL RDW 13.8 (11.5-15.5) % Plt Count 294 (150-450) k/uL MPV 7.3 Neutrophils % 53 % Lymphocytes % 36 % Monocytes % 6 % Eosinophils % 2 % Basophils % 1 % Neutrophils # 6.6 (1.3-7.7) k/uL Lymphocytes # 4.5 (1.0-4.8) k/uL Monocytes # 0.7 (0-1.0) k/uL Eosinophils # 0.3 (0-0.7) k/uL Basophils # 0.1 (0-0.2) k/uL Sodium 138 (137-145) mmol/L Potassium 5.0 (3.5-5.1) mmol/L Chloride 103 (98-107) mmol/L Carbon Dioxide 30 (22-30) mmol/L Anion Gap 5 mmol/L BUN 21 H (7-17) mg/dL Creatinine 0.74 (0.52-1.04) mg/dL Est GFR (CKD-EPI)AfAm >90 (>60 ml/min/1.73 sqM) Est GFR (CKD-EPI)NonAf 86 (>60 ml/min/1.73 sqM) Glucose 85 (74-99) mg/dL Calcium 9.3 (8.4-10.2) mg/dL Total Bilirubin 0.3 (0.2-1.3) mg/dL AST 23 (14-36) U/L ALT 11 (4-34) U/L Alkaline Phosphatase 81 (38-126) U/L Total Protein 7.2 (6.3-8.2) g/dL Albumin 4.0 (3.5-5.0) g/dL Disposition Clinical Impression: Cellulitis of forearm, right Disposition: HOME SELF-CARE Condition: Stable Instructions (If sedation given, give patient instructions): Cellulitis (ED) Additional Instructions: Take antibiotic as prescribed. Avoid scratching or rubbing affected site. May take Benadryl if needed for itching. Please see your PCP on Wednesday for a recheck. Return to the emergency department if you develop a fever, worsening redness, or any other concerning findings. Prescriptions: Clindamycin [Cleocin] 450 mg PO TID 5 Days #75 capsule Is patient prescribed a controlled substance at d/c from ED?: No Referrals: Jayashree Torres MD [Primary Care Provider] - 1-2 days Time of Disposition: 18:24
[2022-10-17 17:39] LABS: Basophils # (A) 0.1 k/uL (0-0.2); Basophils % (A) 1 %; Eosinophils # (A) 0.3 k/uL (0-0.7); Eosinophils % (A) 2 %; HCT 42.1 % (34.0-46.0); HGB 14.3 gm/dL (11.4-16.0); Lymphocytes # (A) 4.5 k/uL (1.0-4.8); Lymphocytes % (A) 36 %; MCH 31.6 pg (25.0-35.0); MCHC 34.1 g/dL (31.0-37.0); MCV 92.8 fL (80.0-100.0); Mean Platelet Volume 7.3; Monocytes # (A) 0.7 k/uL (0-1.0); Monocytes % (A) 6 %; Neutrophils # (A) 6.6 k/uL (1.3-7.7); Neutrophils % (A) 53 %; Platelet Count 294 k/uL (150-450); RBC 4.54 m/uL (3.80-5.40); RDW 13.8 % (11.5-15.5); WBC 12.5 k/uL (3.8-10.6)
[2022-10-17 17:48] LABS: ALT 11 U/L (4-34); AST 23 U/L (14-36); African American GFR (CKD) >90 (>60 ml/min/1.73 sqM); Alkaline Phosphatase 81 U/L (38-126); Anion Gap 5 mmol/L; Blood Urea Nitrogen 21 mg/dL (7-17); Calcium 9.3 mg/dL (8.4-10.2); Carbon Dioxide 30 mmol/L (22-30); Chloride 103 mmol/L (98-107); Glucose 85 mg/dL (74-99); Non-African American GFR(CKD) 86 (>60 ml/min/1.73 sqM); Sodium 138 mmol/L (137-145); Total Bilirubin 0.3 mg/dL (0.2-1.3); Total Protein 7.2 g/dL (6.3-8.2)
[2022-10-17] MEDS ORDERED: CLINDAMYCIN 150 MG CAP PO STA (18:03)
[2022-10-17] MEDS ORDERED: diphenhydrAMINE 25 MG CAP PO STA (18:18)
[2022-10-17 18:57] VITALS: BP 140/72; PULSE 82; RESP 18; TEMP 98.1
== END 2022-10-17 18:57 | disposition home or self-care (01) ==
LOC: EC 15:19
DX: L03.113 Cellulitis of right upper limb (principal); J45.909 Unspecified asthma, uncomplicated; J44.9 Chronic obstructive pulmonary disease, unspecified; Z86.73 Personal history of transient ischemic attack (TIA), and cerebral infarction without residual deficits; Z86.718 Personal history of other venous thrombosis and embolism; I10 Essential (primary) hypertension; G40.909 Epilepsy, unspecified, not intractable, without status epilepticus; F41.9 Anxiety disorder, unspecified; F31.9 Bipolar disorder, unspecified; Z87.891 Personal history of nicotine dependence; F12.90 Cannabis use, unspecified, uncomplicated; Z91.041 Radiographic dye allergy status; Z88.0 Allergy status to penicillin; Z91.048 Other nonmedicinal substance allergy status; Z79.890 Hormone replacement therapy; Z79.82 Long term (current) use of aspirin
CPT/HCPCS: 36415; 80053; 85025; 87040; 99283; 96374; 96375; 96361; J2270; J2405

== ENCOUNTER → 2023-12-09 | Outpatient (CLI) | payer MEDICARE ==
[2023-12-09 16:56] LABS: ALT 9 U/L (8-44); AST 24 U/L (13-35); Chol/HDL Ratio 2.57 Ratio; LDL Cholesterol,Calculated 107.3 mg/dL (0.0-131.0); VLDL Calculation 15.58 mg/dL (5.00-40.00)
== END | disposition home or self-care (01) ==
LOC: LABWHC1 09:28
PROVIDERS: ATTEND Internal Medicine Cardiovascular Disease
DX: E78.2 Mixed hyperlipidemia (principal)
CPT/HCPCS: 36415; 80061; 84450; 84460

== ENCOUNTER → 2024-11-06 | Outpatient (CLI) | payer MEDICARE ==
--- NOTE | 2024-11-06 11:41 | XR ---
EXAMINATION TYPE: XR shoulder complete LT DATE OF EXAM: 11/06/2024 CLINICAL HISTORY: Pain TECHNIQUE: Three views of the left shoulder are obtained. COMPARISON: None. FINDINGS: There is no acute fracture/dislocation evident in the left shoulder. Moderate narrowing at the acromioclavicular joint. Fairly moderate narrowing of the glenohumeral joint. Demineralization i s seen. A dual lead pacemaker is partially imaged. IMPRESSION: As above. [facility], , 11/06/2024 11:38 AM
== END | disposition home or self-care (01) ==
LOC: RADXRMAIN 11:13
PROVIDERS: ATTEND Internal Medicine
DX: M25.512 Pain in left shoulder (principal)